=== PATIENT | male | born 1955 | race Caucasian/White ===

== ENCOUNTER 2024-12-29 15:55 | Inpatient (IN) | payer OTHER, SELFPAY ==
[2024-12-29] VITALS (11 sets, daily range): BP systolic 101–142; BP diastolic 42–70; BMI 27.6; BMI 28.7
--- NOTE | 2024-12-29 12:24 | ED.GENMED ---
History of Present Illness
<ELTON Barton - Last Filed: 01/02/25 00:24>
General
Chief Complaint: Cold/Flu/URI Symptoms
Source: patient
Exam Limitations: none
Time Seen by Provider: 12/29/24 11:51
Nursing documentation reviewed up to this point in time: agreed with
History of Present Illness
History of Present Illness:
Patient is a 69-year-old male with past medical history of sleep apnea hypertension presents to the ER for evaluation. 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 He also has been on doxycycline Augmentin without relief. He complains of persistent cough and wheezing. He is unable to sleep because of his cough at night.
he denies any fevers.
Phy Exam
<ELTON Barton - Last Filed: 01/02/25 00:24>
General Physical Exam
General Presentation: no apparent distress
General age: appears stated age
General Skin: warm and dry
General Habitus: normal
General Mental: alert
General Hydration: appears well hydrated
Cardiovascular Exam
Cardiovascular Exam: regular rate/rhythm, no murmur and normal peripheral pulses
Pulmonary Exam
Pulmonary Exam: generalized wheezing and other (+cough )
Neurological Exam
Neurological Exam: alert and oriented x3
Musculoskeletal Exam
Musculoskeletal Exam: full ROM
Skin Exam
Skin Exam: normal color and warm/dry
Psychiatric Exam
Psychiatric Exam: normal mood/affect
Course
<ELTON Barton - Last Filed: 01/02/25 00:24>
Orders/Labs/Results
Orders:
Orders
12/29/24 Breakfast
Regular
At Your Request: Limited Participation
Does patient need a safe tray?: No
12/29/24 11:38
CXR2 [CR Chest - 2 Views ] Urgent
Comment:
Reason For Exam: cough with SOB
12/29/24 12:40
Dexamethasone Sod Phosphate [Decadron] 10 mg IV NOW STA
12/29/24 12:42
Albuterol Sulfate [Ventolin Nebules] 7.5 mg INH R NOW STA
Ipratropium Nebs [Atrovent Nebules] 1 mg INH R NOW STA
12/29/24 12:51
Complete Blood Count/With Diff Urgent
Comprehensive Metabolic Panel Urgent
Magnesium Urgent
Comment: ADD ON
12/29/24 15:13
Electrocardiogram (*1) Stat
Reason for Study: Other
Other Reason for Exam: chest pain
EKG- Treatment ONCE
12/29/24 15:33
Admit/Transfer Patient As Directed
Co-Sign Provider:
Level of Care: Inpatient admission
Assign to:: Telemetry
Physician / Group: inocencia
Diagnosis: v tach
Reason for Telemetry: Arrhythmia
Date to Stop Telemetry: 01/01/25
Time to Stop Telemetry: 11:00
Reason for Hospitalization: v tach
Expected length of stay greater than two midnights?: Yes
ELOS- Estimated Length of Stay in days: 3
I certify the patient meets the requirements for IP care: Yes
12/29/24 15:34
PRN Pain Medication Management As Directed
May give lesser potent ordered pain med per pt: Yes
preference::
Protocol:: Medication orders for pain may be administered in a
manner that supports deferring to patient preference
when the pt is:
- Requesting an ordered lesser potent pain medication.
Least to most potent pain medications are defined
as: acetaminophen < NSAID < tramadol < opioids
(morphine, oxycodone, hydromorphone).
- Requesting a lesser dose of the same medication IF
ORDERED.
- Requesting a less intrusive route of administration
if both routes are prescribed by the provider (PO <
IV).
12/29/24 15:35
Code Status As Directed
Resuscitation Status: Full Code
12/29/24 16:29
COVID-19 Antigen Stat
Source: Nasal Swab
Influenza A+B Rapid Molecular Stat
DEBBIE Source: Nasal Swab
Specimen Description:
12/29/24 18:30
Acetaminophen [Tylenol] 650 mg PO Q4HPRN PRN
Bisacodyl [Dulcolax] 10 mg RECTAL [id number] PRN
Docusate W/Senna [Senokot-S] 1 tablet PO BIDPRN PRN
Enoxaparin Sodium [Lovenox] 40 mg SC QPM
Ipratropium/Albuterol Sulfate [Duoneb] 3 ml INH R QID
Polyethylene Glycol Powder [Miralax] 17 grams PO DAILYPRN PRN
12/29/24 18:30
CARDIOLOGY CONSULT Routine
Consulting Provider: Charles Montalvo
Was physician already notified: Yes
Respiratory Culture/Gram Stain Routine
DEBBIE Source: Sputum
Specimen Description:
Activity As Directed
Activity Level: As Tolerated
Vital Signs As Directed
Frequency: Per unit guidelines
DX Deep Vein Thrombosis Video Routine
12/29/24 20:00
Budesonide [Pulmicort] 0.5 mg INH R BID
Tamsulosin [Flomax] 0.4 mg PO BID
12/29/24 21:00
Dexamethasone Sod Phosphate [Decadron] 4 mg IV Q8H
12/30/24 08:00
Ramipril [Altace] 10 mg PO DAILY
Triamterene/Hctz [Dyazide] 1 capsule PO DAILY
01/01/25 11:00
DC Protocol for Telemetry ONCE
Abnormal Lab Results
12/29/24
12:51
RBC 4.40 L 10^6/uL
(4.70-6.10)
MCHC 32.4 L g/dL
(33.0-37.0)
MPV 11.4 H fL
(7.4-10.4)
Abs Immat Gran (auto) 0.1 H 10^3/uL
(0-0.05)
Absolute Neuts (auto) 6.9 H 10^3/uL
(1.4-6.5)
Absolute Monos (auto) 1.6 H 10^3/uL
(0.1-0.6)
Immature Gran % 0.6 H %
(0-0.5)
Lymphocytes % 18.4 L %
(20.5-51.1)
Monocytes % 14.8 H %
(1.7-9.3)
Sodium 134 L mmol/L
(135-145)
BUN 21 H mg/dl
(9-20)
Glucose 101 H mg/dl
(70-99)
Alkaline Phosphatase 37 L U/L
(38-126)
12/29/24 12:51
12/29/24 12:51
Vital Signs
Initial and Last Documented VS:
Initial Vital Signs
Temp Pulse Resp BP Pulse Ox
98.1 F 67 16 142/67 98
12/29/24 10:40 12/29/24 10:40 12/29/24 10:40 12/29/24 10:40 12/29/24 10:40
Last Documented Vital Signs
Temp Pulse Resp BP Pulse Ox
98.2 F 56 16 110/56 100
01/01/25 22:53 01/01/25 22:53 01/01/25 22:53 01/01/25 22:53 01/01/25 22:53
Generating Plant Superintendent consulted with Physician
Generating Plant Superintendent consulted with physician?: Yes
Name of Physician Consulted: Yasir
<Eri Cooley MD - Last Filed: 12/29/24 17:56>
Orders/Labs/Results
Orders:
Orders
12/29/24 Breakfast
Regular
At Your Request: Limited Participation
Does patient need a safe tray?: No
12/29/24 11:38
CXR2 [CR Chest - 2 Views ] Urgent
Comment:
Reason For Exam: cough with SOB
12/29/24 12:40
Dexamethasone Sod Phosphate [Decadron] 10 mg IV NOW STA
12/29/24 12:42
Albuterol Sulfate [Ventolin Nebules] 7.5 mg INH R NOW STA
Ipratropium Nebs [Atrovent Nebules] 1 mg INH R NOW STA
12/29/24 12:51
Complete Blood Count/With Diff Urgent
Comprehensive Metabolic Panel Urgent
Magnesium Urgent
Comment: ADD ON
12/29/24 15:13
Electrocardiogram (*1) Stat
Reason for Study: Other
Other Reason for Exam: chest pain
EKG- Treatment ONCE
12/29/24 15:33
Admit/Transfer Patient As Directed
Co-Sign Provider:
Level of Care: Inpatient admission
Assign to:: Telemetry
Physician / Group: inocencia
Diagnosis: v tach
Reason for Telemetry: Arrhythmia
Date to Stop Telemetry: 01/01/25
Time to Stop Telemetry: 11:00
Reason for Hospitalization: v tach
Expected length of stay greater than two midnights?: Yes
ELOS- Estimated Length of Stay in days: 3
I certify the patient meets the requirements for IP care: Yes
12/29/24 15:34
PRN Pain Medication Management As Directed
May give lesser potent ordered pain med per pt: Yes
preference::
Protocol:: Medication orders for pain may be administered in a
manner that supports deferring to patient preference
when the pt is:
- Requesting an ordered lesser potent pain medication.
Least to most potent pain medications are defined
as: acetaminophen < NSAID < tramadol < opioids
(morphine, oxycodone, hydromorphone).
- Requesting a lesser dose of the same medication IF
ORDERED.
- Requesting a less intrusive route of administration
if both routes are prescribed by the provider (PO <
IV).
12/29/24 15:35
Code Status As Directed
Resuscitation Status: Full Code
12/29/24 16:29
COVID-19 Antigen Stat
Source: Nasal Swab
Influenza A+B Rapid Molecular Stat
DEBBIE Source: Nasal Swab
Specimen Description:
12/29/24 18:30
Acetaminophen [Tylenol] 650 mg PO Q4HPRN PRN
Bisacodyl [Dulcolax] 10 mg RECTAL [id number] PRN
Docusate W/Senna [Senokot-S] 1 tablet PO BIDPRN PRN
Enoxaparin Sodium [Lovenox] 40 mg SC QPM
Ipratropium/Albuterol Sulfate [Duoneb] 3 ml INH R QID
Polyethylene Glycol Powder [Miralax] 17 grams PO DAILYPRN PRN
12/29/24 18:30
CARDIOLOGY CONSULT Routine
Consulting Provider: Charles Montalvo
Was physician already notified: Yes
Respiratory Culture/Gram Stain Routine
DEBBIE Source: Sputum
Specimen Description:
Activity As Directed
Activity Level: As Tolerated
Vital Signs As Directed
Frequency: Per unit guidelines
DX Deep Vein Thrombosis Video Routine
12/29/24 20:00
Budesonide [Pulmicort] 0.5 mg INH R BID
Tamsulosin [Flomax] 0.4 mg PO BID
12/29/24 21:00
Dexamethasone Sod Phosphate [Decadron] 4 mg IV Q8H
12/30/24 08:00
Ramipril [Altace] 10 mg PO DAILY
Triamterene/Hctz [Dyazide] 1 capsule PO DAILY
01/01/25 11:00
DC Protocol for Telemetry ONCE
Abnormal Lab Results
12/29/24
12:51
RBC 4.40 L 10^6/uL
(4.70-6.10)
MCHC 32.4 L g/dL
(33.0-37.0)
MPV 11.4 H fL
(7.4-10.4)
Abs Immat Gran (auto) 0.1 H 10^3/uL
(0-0.05)
Absolute Neuts (auto) 6.9 H 10^3/uL
(1.4-6.5)
Absolute Monos (auto) 1.6 H 10^3/uL
(0.1-0.6)
Immature Gran % 0.6 H %
(0-0.5)
Lymphocytes % 18.4 L %
(20.5-51.1)
Monocytes % 14.8 H %
(1.7-9.3)
Sodium 134 L mmol/L
(135-145)
BUN 21 H mg/dl
(9-20)
Glucose 101 H mg/dl
(70-99)
Alkaline Phosphatase 37 L U/L
(38-126)
12/29/24 12:51
12/29/24 12:51
Vital Signs
Initial and Last Documented VS:
Initial Vital Signs
Temp Pulse Resp BP Pulse Ox
98.1 F 67 16 142/67 98
12/29/24 10:40 12/29/24 10:40 12/29/24 10:40 12/29/24 10:40 12/29/24 10:40
Last Documented Vital Signs
Temp Pulse Resp BP Pulse Ox
98.2 F 56 16 110/56 100
01/01/25 22:53 01/01/25 22:53 01/01/25 22:53 01/01/25 22:53 01/01/25 22:53
<ELTON Barton - Last Filed: 01/02/25 00:24>
MDM/Problems Addressed
Differential Diagnosis Includes:
Not limited to viral syndrome, bronchitis, pneumonia
MDM/Problems Addressed:
As documented patient is a 69-year-old male who presented for cough for the past month. He has been on multiple antibiotics and inhalers. He is visiting from [place] and was seen by pulmonary. He denies any actual shortness of breath but has not
been able to sleep because of the cough. Complains of wheezing. He presents with obvious wheezing no fevers non hypoxic .
Patient was given an hour-long neb and does feel better however continued wheezing throughout. Chest x-ray negative.
1445: Called by nurse patient had a run of vtach 13 beats at a time however asymptomatic stable blood pressure.
Case reviewed with ED physician. Case reviewed with admitting hospitalist as well as cardiology. As discussed with cardiology will hold off on amiodarone. It is possible that albuterol precipitated this. Will check EKG patient will likely need
echo and then hospitalist made aware. Patient remains asymptomatic with stable blood pressure
Chronic conditions affecting care:
Hypertension sleep apnea
<ELTON Barton - Last Filed: 01/02/25 00:24>
*Radiology
Radiology exam reviewed: radiology read reviewed
*Pulse Oximetry
SaO2: 98
Oxygen Mode of Delivery: Room air
Patient hypoxic: no
*Critical Care Note
Total Time (30-74mins, 75-104mins- exclusive of procedures): Not Applicable
ED Attending Note
<ELTON Barton - Last Filed: 01/02/25 00:24>
-
Portions of this chart may have been created with voice recognition software.� Occasional wrong word or��sound alike� substitutions may have occurred due to the inherent limitations of voice recognition software.
<Eri Cooley MD - Last Filed: 12/29/24 17:56>
ED Attending Note
Patient seen and examined by attending physician: Yes
I performed the substantive portion of visit, reviewed & personally made and approve the management plan that is documented in note by myself or GEOVANNI.: Yes
ED Attending Note:
Patient is fully awake, alert. Heart sounds regular. Mild tachypnea and wheezing
Discharge Plan
Departure
Patient Disposition: Admit
Date of Disposition: 12/29/24
Time of Disposition: 15:15
Admit to: Telemetry
Admit to doctor: hospitalist
Presentation/result/management discussed w/ accepting MD/DO: Hospitalist
Patient with high blood pressure during this ER visit?: No
Condition: Fair
Covid-19: Not Applicable
Discharge Problem:
Bronchitis, Arrhythmia
Interventions
Interventions:
*General Assessment Last Done: 12/29/24 13:11
*Neglect/Abuse Screening Last Done: 12/29/24 10:42
*ED- Fall Risk Assessment Last Done: 12/29/24 13:11
*ED Influenza Vaccine History Last Done: 12/29/24 13:11
*Nursing Disposition Last Done: 12/29/24 18:15
ED- Pulmonary Assessment Last Done: 12/29/24 13:11
Discharge Date and Time
Discharge Date/Time: 12/29/24 18:23
[2024-12-29] MEDS: VENTOLIN NEBULES 7.5 MG INH (12:55)
[2024-12-29] MEDS: DECADRON 10 MG IV (12:55)
[2024-12-29] MEDS: ATROVENT NEBULES 1 MG INH (12:56)
[2024-12-29 13:09] LABS: Hematocrit 41.0 % (39.0-52.0); Hemoglobin 13.3 g/dL (13.0-18.0); Mean Corp Hgb Conc. 32.4 g/dL (33.0-37.0); Mean Corpuscular Volume 93.2 fL (80.0-94.0); Nucleated Red Blood Cells % 0 % (-); Platelet Count 207 10^3/uL (130-400); Red Cell Dist. Width 14.2 % (11.5-14.5)
[2024-12-29 13:24] LABS: ALT (SGPT) 31 U/L (0-50); AST (SGOT) 27 U/L (17-59); Albumin 4.0 g/dl (3.5-5.0); Alkaline Phosphatase 37 U/L (38-126); Blood Urea Nitrogen 21 mg/dl (9-20); Calcium 9.3 mg/dl (8.4-10.2); Carbon Dioxide 27 mmol/L (22-30); Chloride 104 mmol/L (98-107); Estimated Creatinine Clearance 98 ml/min; Glucose 101 mg/dl (70-99); Potassium 4.6 mmol/L (3.5-5.1); Sodium 134 mmol/L (135-145); Total Protein 7.0 g/dl (6.3-8.2); eGFR > 60.00
--- NOTE | 2024-12-29 15:15 | HPS.HSE ---
Addendum entered and electronically signed by Arlene Heard MD 12/29/24 16:49:
Pt seen and examined independently. I agree with GLASS SCIENCE ENGINEER Paula Modi.
GENERAL: well developed, well nourished, male in no apparent distress
HEENT: NC/AT--NO O2 requirements
HEART: irreg irreg with periods of regularity
LUNGS : coarse rhonchi bilaterally
ABDOM: soft, nontender, nondistended, + bowel sounds
EXT: no cyanosis, clubbing, or edema
NEUROLOGIC: grossly intact
Cough unclear cause--patient has had at least 3 rounds of antibiotics and oral prednisone without any improvement--chest x-ray shows no acute process--suspect either viral but less likely with normal white count and no other symptoms--versus perhaps
COPD or other lung issue exacerbation--admit--consult pulmonary--continue nebs, Pulmicort nebs, IV Decadron--would consider a CAT scan--low suspicion for PE but lung parenchyma could be evaluated--will check COVID and flu--patient denies any recent
long car trips, travel, vaccinations--will try Hycodan for cough
V. tach unclear cause likely from nebulizer treatment--potassium greater than 4 and magnesium greater than 2--while I was examining the patient, he had what appears to be periods of tachycardia (SVT with aberrancy versus ventricular in
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
treatments and his primary lung issue--consult cardiology--check troponin and echocardiogram--check proBNP
essential HTN--ramipril and triamterene continued (perhaps this is an CAN inhibitor induced cough?)
DVT prophylaxis--Lovenox
CODE status--full code
Original Note:
Family Physician
-
Family Physician: PHYSICIAN PRIVATE
Chief Complaint
-
cough
History of Present Illness
69-year-old male with past medical history of sleep apnea hypertension presented to us with cough which at times productive with clear sputum for four weeks. patient as on prednisone which effected his sleep with no relief. he was also on doxy and
Augmentin with no relief in his symptoms. he was prescribed trilogy Symbicort and inhaler. He complains of persistent cough and wheezing and sob. he denies any fevers,chills and chest pain. denied SARGENT, dizzy or syncope. denied abdominal pain,n,vd,.
denied dysuria or hematuria. patient stated palpitation some times in the past.
patient received a dose of sterids, nebs in ER. admitting for further management. patient had a run of v tach in the ER.
Medical History
Past Medical History
Past Medical History: Reports Other
Additional Past Medical History:
HTN
sleep apnea
Past Surgical History: Reports Other
Additional Past Surgical History:
humerus surgery
Social History
Tobacco: Non-smoker
Alcohol: Occasional
Drug: None
Family History
Family History: Not pertinent
Allergies / Home Medications
Allergies reflects when Allergies were last updated in [employer].
Home Medications with original date entered in [employer]
Allergy/Medication List:
Allergies
Allergy/AdvReac Type Severity Reaction Status Date / Time
No Known Allergies Allergy Unverified 12/29/24 10:42
Home Medications
amoxicillin 875 mg-potassium clavulanate 125 mg tablet 1 tab PO BID 12/29/24
ascorbic acid (vitamin C) 500 mg tablet (Vitamin C) 500 mg PO DAILY 12/29/24
cholecalciferol (vitamin D3) 25 mcg (1,000 unit) tablet (Vitamin D3) 25 mcg PO DAILY 12/29/24
magnesium oxide 400 mg PO DAILY 12/29/24
milk thistle 150 mg capsule 150 mg PO BID 12/29/24
omega 8-fly-crm-fish oil 1,000 mg (120 mg-180 mg) capsule (Fish Oil) 1 cap PO DAILY 12/29/24
ramipril 10 mg capsule 10 mg PO DAILY 12/29/24
tamsulosin 0.4 mg capsule (Flomax) 0.4 mg PO BID 12/29/24
triamterene 37.5 mg-hydrochlorothiazide 25 mg tablet 1 tab PO DAILY 12/29/24
zinc sulfate 50 mg zinc (220 mg) tablet 50 mg PO DAILY 12/29/24
Review of Systems
-
Constitutional: Reports No Symptoms
EENT: Reports No Symptoms
Respiratory: Reports Cough and Trouble Breathing
Cardiac: Reports No Symptoms
Abdomen/GI: Reports No Symptoms
: Reports No Symptoms
Musculoskeletal: Reports No Symptoms
Skin: Reports No Symptoms
Neurological: Reports No Symptoms
Endocrine: Reports No Symptoms
Hematologic/Lymphatic: Reports No Symptoms
Psych: Reports No Symptoms
Physical Exam
Vital Signs
Vital Signs
Temp Pulse Resp BP Pulse Ox
97.6 F 55 17 101/50 99
12/29/24 13:11 12/29/24 13:11 12/29/24 13:11 12/29/24 13:11 12/29/24 13:11
Physical Exam
General: Well Developed, Well Nourished and No Apparent Distress
HEENT: NormoCephalic, Moist mucous membranes and Atraumatic
Respiratory: Wheezes and Rhonchi
Cardiac: S1/S2 and Regular Rhythm; No Murmur or Rub
GI: Soft, Non Tender, Non Distended and Normal Bowel Sounds; No Organomegaly
Rectal: Deferred by Provider
Musculoskeletal: No Clubbing, No Cyanosis and No Edema
Skin: No Rash
Neuro: AO x 3 and Nonfocal/grossly intact
Psych: Calm
Laboratory Results
-
12/29/24 12:51
12/29/24 12:51
Laboratory Results
Total Bilirubin 0.8 mg/dl (0.2-1.3) 12/29/24 12:51
AST 27 U/L (17-59) 12/29/24 12:51
ALT 31 U/L (0-50) 12/29/24 12:51
Alkaline Phosphatase 37 U/L (38-126) L 12/29/24 12:51
Data Reviewed
-
Lab Data: Labs Reviewed by me
Impression/Plan
-
# Cough unclear cause
- Chest x-ray with no acute cardiopulmonary process
-nebs, steroids in the ER
-albuterol, Pulmicort continued
-obtain COVID and Flu
--Decadron 4 q8h
-hycodan for cough
-pulmonary consulted
# V. tach unclear cause likely from nebulizer treatment
#hxt of irregular heartbeat
- Check echocardiogram
- Cardiology consulted
-BNP and trop added
#essential HTN
-ramipril and triamterene continued
#DVT prophylaxis
-Lovenox
#CODE status
-full code
[2024-12-29 15:32] LABS: Magnesium 2.3 mg/dl (1.6-2.3)
--- NOTE | 2024-12-29 15:36 | EDRN ---
the pt was having runs of Vtach with dizziness and nausea, this RN notified Dr. Cooley and Mady Toure RAISE DRILL OPERATOR, pts Vtach breaks on it's own, pt will be admitted
[2024-12-29 17:03] LABS: COVID-19 Antigen Negative (Negative)
[2024-12-29 17:10] LABS: Troponin I < 0.012 ng/ml
--- NOTE | 2024-12-29 18:05 | EDRN ---
this RN called the receiving unit and notified them that paper report was going to be tubed up
[2024-12-29] MEDS: DUONEB INH (19:00)
[2024-12-29] MEDS: FLOMAX 0.4 MG PO (19:42)
[2024-12-29] MEDS: LOVENOX 40 MG SC (19:42)
[2024-12-29] MEDS: DUONEB 3 ML INH (19:45)
[2024-12-29] MEDS: PULMICORT 0.5 MG INH (19:45)
[2024-12-29] MEDS: DECADRON 4 MG IV (21:44)
[2024-12-29 21:45] LABS: Glucose - Point of Care 301 mg/dl (70-99)
[2024-12-30 03:17] VITALS: BP 150/59
[2024-12-30 04:15] LABS: Hematocrit 42.7 % (39.0-52.0); Hemoglobin 13.9 g/dL (13.0-18.0); Mean Corp Hgb Conc. 32.6 g/dL (33.0-37.0); Mean Corpuscular Volume 93.2 fL (80.0-94.0); Platelet Count 231 10^3/uL (130-400); Red Cell Dist. Width 14.2 % (11.5-14.5)
[2024-12-30] MEDS: DECADRON 4 MG IV ×3 (05:00→21:04)
[2024-12-30 07:00] VITALS: BP 109/45
[2024-12-30] MEDS: DUONEB 3 ML INH ×3 (07:32→15:30)
[2024-12-30] MEDS: PULMICORT 0.5 MG INH ×2 (07:32→19:37)
[2024-12-30 08:46] LABS: Blood Urea Nitrogen 21 mg/dl (9-20); Calcium 9.3 mg/dl (8.4-10.2); Carbon Dioxide 23 mmol/L (22-30); Chloride 106 mmol/L (98-107); Estimated Creatinine Clearance 98 ml/min; Glucose 177 mg/dl (70-99); HDL Cholesterol 49 mg/dl; LDL Cholesterol, Calculated 106 mg/dl; Magnesium 2.3 mg/dl (1.6-2.3); Potassium 4.4 mmol/L (3.5-5.1); Sodium 135 mmol/L (135-145); Very Low Density Lipoprotein 11 mg/dl (0-30); eGFR > 60.00
[2024-12-30] MEDS: ALTACE 10 MG PO (09:02)
[2024-12-30] MEDS: MAGNESIUM OXIDE 400 MG PO (09:02)
[2024-12-30] MEDS: DYAZIDE 1 CAPSULE PO (09:02)
[2024-12-30] MEDS: FLOMAX 0.4 MG PO ×2 (09:02→19:09)
[2024-12-30 11:00] VITALS: BP 123/58
--- NOTE | 2024-12-30 11:58 | CON.CAR ---
Consultation
Consultation Request
Date/Time Consultation Requested: 12/29/2024 1600
Date/Time Consultation Performed: 12/30/2024 1000
Requesting Provider: Félix
Performing Provider: Katia
Reason for Consultation: PVCs
Medical History
-
Chief Complaint: SOB, cough, wheeze
History of Present Illness:
Patient is a pleasant 69-year-old male with a past medical history significant for hypertension, sleep apnea who presents to [facility] due to shortness of breath, cough, wheezing. Cardiology consulted due to sinus bradycardia and PVCs.
In discussion with patient and his spouse, patient is been experiencing increasing shortness of breath over the past several weeks. Patient and spouse have been on a cruise 6-8 weeks ago and following this, patient had an upper respiratory
infection but was unclear of what type of infection this was. Since then, he has experienced continued shortness of breath, cough, wheezing with mild improvement with neb treatments. While in emergency department, patient had evidence of PVCs and
NSVT on library monitor. In discussion with patient and spouse, patient did not experience these PVCs palpitations or NSVT. However, in further discussion with spouse, patient has been experiencing more shortness of breath and palpitations which
he does not readily admit. Patient is active walking and doing physical activity but does not exercise due to abdominal hernia. Patient follows with cardiology and electrophysiology in [place] and was reported by cardiology to have upcoming
stress test this April but no other testing recently. Additionally, he had seen electrophysiology due to what sounds PVCs however patient was told that he 'was on the cusp' for needing treatment however unclear what this could entail. Patient
is a non-smoker, rare alcohol, no illicits. No significant pertinent family history. In discussion with patient today, he does report some mild improvement with shortness of breath following neb treatments. Again, in evaluation, he denies any
palpitations associated with PVCs or ectopy. Additionally, patient has not experienced near-syncope syncope or focal weakness.
Past Medical History
Past Medical History: Other (See HPI)
Past Surgical History: Other (Humeral fracture)
Social History
Tobacco: Non-Smoker
Alcohol: Occasional
Drug: None
Personal:
Living: With Family
Employment: Employed
Family History
Family History: Reviewed & Not Pertinent
Allergies / Home Medications
Allergy/AdvReac Type Severity Reaction Status Date / Time
No Known Allergies Allergy Unverified 12/29/24 10:42
�Medication �Instructions �Recorded �Confirmed �Type
amoxicillin 875 mg-potassium 1 tab PO BID 12/29/24 12/29/24 History
clavulanate 125 mg tablet
ascorbic acid (vitamin C) 500 mg 500 mg PO DAILY 12/29/24 12/29/24 History
tablet (Vitamin C)
cholecalciferol (vitamin D3) 25 25 mcg PO DAILY 12/29/24 12/29/24 History
mcg (1,000 unit) tablet (Vitamin
D3)
magnesium oxide 400 mg PO DAILY 12/29/24 12/29/24 History
milk thistle 150 mg capsule 150 mg PO BID 12/29/24 12/29/24 History
omega 5-akr-epo-fish oil 1,000 mg 1 cap PO DAILY 12/29/24 12/29/24 History
(120 mg-180 mg) capsule (Fish Oil)
ramipril 10 mg capsule 10 mg PO DAILY 12/29/24 12/29/24 History
tamsulosin 0.4 mg capsule (Flomax) 0.4 mg PO BID 12/29/24 12/29/24 History
triamterene 37.5 1 tab PO DAILY 12/29/24 12/29/24 History
mg-hydrochlorothiazide 25 mg tablet
zinc sulfate 50 mg zinc (220 mg) 50 mg PO DAILY 12/29/24 12/29/24 History
tablet
Review of Systems
-
History Source: Patient and Family
All other systems: Negative unless noted
Constitutional: No Symptoms
EENT: No Symptoms
Respiratory: Cough, Trouble Breathing and Other (Wheezing)
Cardiac: No Symptoms
Abdomen/GI: No Symptoms
: No Symptoms
Musculoskeletal: No Symptoms
Skin: No Symptoms
Neurological: No Symptoms
Endocrine: No Symptoms
Hematologic/Lymphatic: No Symptoms
Physical Exam
Vital Signs
Temp Pulse Resp BP Pulse Ox
97.7 F 64 16 109/45 95
12/30/24 07:00 12/30/24 11:50 12/30/24 11:50 12/30/24 07:00 12/30/24 11:50
Lab Results
12/30/24 03:27
12/30/24 06:34
Troponin I < 0.012 ng/ml 12/29/24 16:29
Yfi-E-Zoxlmfqhqnw Pept 172 pg/ml 12/29/24 16:29
Physical exam:
GENERAL: no acute distress
EYE: sclera anicteric
NECK: Supple, no JVD, no carotid bruit appreciated
ENT: normal nose, moist mucosal membranes
CARDIAC: Regular rate and rhythm ectopy noted, +S1/S2, no murmur, rubs, or gallops
CHEST/PULMONARY: Normal effort, bilateral diffuse wheezing
ABDOMEN: Soft, without focal tenderness or distention
NEUROLOGICAL: Alert and oriented x3
SKIN: Warm and dry, no rash
PSYCH: Normal and appropriate interaction.
Telemetry shows sinus rhythm with PVCs and brief NSVT
Impression / Plan
-
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
Impression:
PVCs, nonsustained ventricular tachycardia
� Asymptomatic
� Monomorphic; left bundle morphology, positive lead I inferiorly directed axis with transition at V3 which may represent RVOT (additionally, transition is earlier than sinus and could therefore represent LVOT)
� Reports prior testing with outpatient cardiology but no further intervention
� Intolerant to beta-jazzmine due to fatigue
� Resting sinus bradycardia
Upper respiratory infection
Diffuse wheezing, shortness of breath
Hypertension
Sleep apnea
Recommendations:
� Patient presenting with upper respiratory infection type symptoms with diffuse wheezing. Patient undergoing treatment evaluation by primary service and pulmonology for his respiratory issue. Patient also noted to have significant ventricular
ectopy. Appears to be monomorphic PVCs with nonsustained VT from similar exit site. Patient states no prior echocardiography however does note that he has a stress test scheduled for this upcoming April. With this in mind, we will have patient
undergo 2D echocardiogram assess cardiac size, shape, function, and valvular anatomy. If abnormal, would would therefore proceed with ischemic evaluation and testing. PVCs may represent outflow tract and therefore, may be amenable for calcium
channel jazzmine such as diltiazem as patient intolerant to beta-jazzmine versus outpatient discussion on ablation however would recommend structural/ischemic evaluation prior to those discussions
� Continue to monitor on telemetry
� Treat underlying causes, correct electrolytes and monitor renal function
� Further recommendations to follow
Discussed with patient, spouse, hospitalist
Data Reviewed
-
EKG: Tracing Personally Visualized and interpreted
Radiology: Report Reviewed by me
Labs: Labs Reviewed by me
[2024-12-30 12:22] LABS: Glucose - Point of Care 223 mg/dl (70-99)
--- NOTE | 2024-12-30 14:35 | W.PN.HOSP.TC ---
Today's Communication/Plan
-
apprec cards
await pulm
ECHO with RV issues--stress vs cath
Assessment / Plan
Assessment / Plan
pt is a 69 year old male
Cough unclear cause--patient has had at least 3 rounds of antibiotics and oral prednisone without any improvement--chest x-ray shows no acute process--suspect either viral but less likely with normal white count and no other symptoms--versus perhaps
COPD or other lung issue exacerbation--await pulmonary--continue nebs, Pulmicort nebs, IV Decadron--would consider a CAT scan--low suspicion for PE but lung parenchyma could be evaluated--COVID and flu negative--patient denies any recent long car
trips, travel, vaccinations--will try Hycodan for cough
V. tach --monomorphic--unclear cause--potassium greater than 4 and magnesium greater than 2--while examining the patient, he had what appeared to be periods of tachycardia (SVT with aberrancy versus ventricular in nature--followed by pauses with
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
issue--apprec cardiology--echocardiogram with EF 60-65% with mild RV dilation and RV systolic function--proBNP 172, no signs of volume overload--troponin < 0.012--will likely get stress test vs cath tomorrow
essential HTN--ramipril and triamterene continued (perhaps this is an CAN inhibitor induced cough?)
DVT prophylaxis--Lovenox
CODE status--full code
Anticipated Discharge: 24 - 48 hours
Subjective/Interval History
-
Date of Service: December 30, 2024
pt feeling better
Objective Data
-
Labs:
Laboratory Results
12/30/24 12/30/24
03:27 06:34
WBC 11.1 H
Hgb 13.9
Hct 42.7
Plt Count 231
Sodium Cancelled 135
Potassium Cancelled 4.4
Chloride Cancelled 106
Carbon Dioxide Cancelled 23
BUN Cancelled 21 H
Creatinine Cancelled 0.8
Glucose Cancelled 177 H
Calcium Cancelled 9.3
Vital Signs:
max temp for 24 hours
12/29/24
23:25
Temp 98.3 F
Vital Signs
Temp Pulse Resp BP Pulse Ox
98.2 F 64 16 123/58 95
12/30/24 11:00 12/30/24 11:50 12/30/24 11:50 12/30/24 11:00 12/30/24 11:50
I&O
12/29/24 12/30/24 12/31/24
06:59 06:59 06:59
Intake Total 480 / 480
Balance 480 / 480
Review of Systems
-
All other systems: Reviewed and negative
Respiratory: Reports Cough (improving)
Physical Exam
-
General: Well Developed, Well Nourished and No Apparent Distress
HEENT: Normocephalic and Atraumatic
Respiratory: Rhonchi (raspy breath sounds left base)
Cardiac: Irregular Rhythm
GI: Soft, Nontender, Nondistended and Normal Bowel Sounds
Musculoskeletal: No Clubbing, No Cyanosis and No Edema
Skin: Warm
Neuro: Awake
Psych: Calm
[2024-12-30 15:00] VITALS: BP 124/58
--- NOTE | 2024-12-30 15:28 | CON.PUL ---
Consultation
Consultation Request
Date/Time Consultation Requested: 12/30/2024
Date/Time Consultation Performed: 12/30/2024
Requesting Provider: Dr. Heard
Performing Provider: Dr. Adam Green
Reason for Consultation: Cough
Medical History
-
History of Present Illness:
69-year-old male with past medical history significant for obstructive sleep apnea, hypertension who presented to the emergency room complaining of cough intermittently productive of clear sputum for the last 4 weeks. Patient has been treated with
antibiotics and prednisone without relief.
He was placed on inhalers in the outpatient including Symbicort and Trelegy.
Complains of persistent cough and wheezing and associated shortness of breath.
Denies fevers, chills, hemoptysis, weight loss. Sick contacts.
Patient was discovered to have a V. tach run in the emergency room.
He was admitted for further evaluation.
-
Patient reports that he has had similar episodes after respiratory infections and he was prescribed inhalers in the past with success
He follows up with a occupational therapy instructor in [place] for obstructive sleep apnea.
Over the years he has been given some inhalers that he takes only when he has symptoms.
Denies GERD or swallowing problems
Denies eczema
-
Patient is here only for the weekend-usually comes to [place] where he has a weekend house.
Past Medical History
Past Medical History: Other (See assessment and plan section)
Social History
Tobacco: Non-smoker
Alcohol: Occasional
Drug: None
Family History
Family History: Reviewed & Not Pertinent
Allergies / Home Medications
Allergies
Allergy/AdvReac Type Severity Reaction Status Date / Time
No Known Allergies Allergy Unverified 12/29/24 10:42
Home Medications
�Medication �Instructions �Recorded �Confirmed �Last Taken �Type
amoxicillin 875 mg-potassium 1 tab PO BID 12/29/24 12/29/24 12/29/24 History
clavulanate 125 mg tablet
ascorbic acid (vitamin C) 500 mg 500 mg PO DAILY 12/29/24 12/29/24 12/29/24 History
tablet (Vitamin C)
cholecalciferol (vitamin D3) 25 25 mcg PO DAILY 12/29/24 12/29/24 12/29/24 History
mcg (1,000 unit) tablet (Vitamin
D3)
magnesium oxide 400 mg PO DAILY 12/29/24 12/29/24 12/29/24 History
milk thistle 150 mg capsule 150 mg PO BID 12/29/24 12/29/24 12/29/24 History
omega 9-bmg-nik-fish oil 1,000 mg 1 cap PO DAILY 12/29/24 12/29/24 12/29/24 History
(120 mg-180 mg) capsule (Fish Oil)
ramipril 10 mg capsule 10 mg PO DAILY 12/29/24 12/29/24 12/29/24 History
tamsulosin 0.4 mg capsule (Flomax) 0.4 mg PO BID 12/29/24 12/29/24 12/29/24 History
triamterene 37.5 1 tab PO DAILY 12/29/24 12/29/24 12/29/24 History
mg-hydrochlorothiazide 25 mg tablet
zinc sulfate 50 mg zinc (220 mg) 50 mg PO DAILY 12/29/24 12/29/24 12/29/24 History
tablet
Review of Systems
-
History Source: Patient
All other systems: Negative unless noted
Vitals / Labs / Diagnostic Testing
Vital Signs
Temp Pulse Resp BP Pulse Ox
98.2 F 64 16 123/58 95
12/30/24 11:00 12/30/24 11:50 12/30/24 11:50 12/30/24 11:00 12/30/24 11:50
Lab Data
12/30/24 03:27
12/30/24 06:34
Microbiology
12/29/24 16:29 Nasal Swab Influenza Types A & B (NUBIA) - Final
Negative for Influenza A & B, NAAT
Negative results must be combined with clinical observations
and patient history.
Nucleic Acid Amplification test (NAAT)performed on the
[employer] platform.
Diagnostic Testing:
Physical Exam
-
HEENT: Normocephalic
Cardiovascular: S1/S2
Respiratory: Wheeze (Forced expiratory wheezing-mild) and Non-Labored Respirations
GI: Soft and Non Distended
Neurology: Awake, AO x 3 and No Motor Deficits
Skin: Warm and Good Color
General: Comfortable
Assessment
-
69-year-old man admitted to the hospital complaining of chronic cough for the last 4 weeks. Patient has been treated with prednisone and antibiotics without success.
Cough interfering with lifestyle and not associated with shortness of breath and wheezing. Came to the emergency room for evaluation. He was discovered to have a nonsustained run of VT. Admitted for further evaluation. Pulmonary consulted
12/30/2024 for coughing
Shortness of breath/cough/wheezing: Possible asthmatic bronchitis
No peripheral eosinophilia
Normal renal function and electrolytes
Negative proBNP and cardiac biomarkers.
COVID and influenza negative
Chest x-ray: No acute abnormality
Nonsustained VT in the emergency room
Echo 12/30/2024: Reviewed showed normal LVEF. No regional wall motion abnormalities. Mild RV dilatation and mild RV systolic dysfunction.
Conditions present prior admission:
Hypertension
Obstructive sleep apnea-on CPAP therapy follows up with a occupational therapy instructor in [place].
Previous history of asthmatic bronchitis in the past
Assessment and plan:
Cough/shortness of breath and wheezing: Possibly asthmatic bronchitis. Most likely postviral-he reports developing an upper respiratory infection at the beginning of the symptoms.
No previous pulmonary disease.
Chest x-ray without acute abnormalities
So far workup has been negative
-
Agree with current management with IV corticosteroids without change
Continue Pulmicort nebulizer-May need to be discharged on nebulizer therapy while the cough improves
On albuterol/ipratropium for now 4 times a day.
Due to palpitations and ectopy will discontinue albuterol portion of nebulizers. States that he feels uncomfortable with palpitations.
-
Will add azithromycin for anti-inflammatory properties 500 mg for 5 days and then transition to 250 mg every other day-
Depending on clinical progression further imaging such as a CAT scan may be necessary.
-
Patient had echocardiogram here for VT and showed mild RV dysfunction.
He was seen by Dr. Hernandez from EP in consultation-
Continue telemetry.
Will avoid albuterol for now.
-
Unclear etiology of RV dysfunction.
Unclear etiology
Not tachycardic or hypoxemic
Will obtain D-dimer
If D-dimer elevated can consider obtaining CT angiogram. Suspicion clinically not very high for thromboembolic event.
-
Continue antitussive as you are doing
-
Ramipril induced cough diagnosis of exclusion-less likely.
-
Continue CPAP therapy if able to tolerate with coughing
-
DVT prophylaxis with enoxaparin
-
Will follow
[2024-12-30] MEDS: LOVENOX 40 MG SC (17:33)
[2024-12-30 19:32] VITALS: BP 115/59
[2024-12-30] MEDS: ATROVENT NEBULES 0.5 MG INH (19:38)
[2024-12-30 21:21] LABS: D-Dimer 0.69 ug/mlFEU (0.00-0.50)
--- NOTE | 2024-12-30 21:41 | W.PN.UPDATE ---
Update Note
Progress Note Update
abnormal D.Dimer result of 0.69. CT/PE ordered and result with no evidence of pulmonary embolism and no significant acute abnormality identified in the chest.
[2024-12-30 22:52] VITALS: BP 121/62
[2024-12-31 04:00] VITALS: BP 111/58
[2024-12-31] MEDS: DECADRON 4 MG IV ×2 (04:17→12:06)
--- NOTE | 2024-12-31 06:15 | PTCARENOTE ---
pt HR in the 60 SR with pvc trigeminy, and multiple burst/runs of vtach. VSS. pt states he feels fine. D-dimer results reported to RONEN Lim. Pt sent for CT PE. updated [employer].
[2024-12-31 07:00] VITALS: BP 117/64
[2024-12-31 07:00] LABS: Hematocrit 38.8 % (39.0-52.0); Hemoglobin 12.7 g/dL (13.0-18.0); Mean Corp Hgb Conc. 32.7 g/dL (33.0-37.0); Mean Corpuscular Volume 92.4 fL (80.0-94.0); Platelet Count 206 10^3/uL (130-400); Red Cell Dist. Width 14.6 % (11.5-14.5)
[2024-12-31 07:11] LABS: Blood Urea Nitrogen 22 mg/dl (9-20); Calcium 9.1 mg/dl (8.4-10.2); Carbon Dioxide 26 mmol/L (22-30); Chloride 106 mmol/L (98-107); Estimated Creatinine Clearance 113 ml/min; Glucose 158 mg/dl (70-99); Magnesium 2.1 mg/dl (1.6-2.3); Potassium 4.3 mmol/L (3.5-5.1); Sodium 137 mmol/L (135-145); eGFR > 60.00
[2024-12-31] MEDS: FLOMAX PO ×4 (07:32→20:08)
[2024-12-31] MEDS: MAGNESIUM OXIDE 400 MG PO (07:32)
[2024-12-31] MEDS: DYAZIDE 1 CAPSULE PO (07:32)
[2024-12-31] MEDS: ALTACE 10 MG PO (07:32)
[2024-12-31] MEDS: PULMICORT 0.5 MG INH ×2 (08:20→19:15)
[2024-12-31] MEDS: ATROVENT NEBULES 0.5 MG INH ×3 (08:20→19:15)
--- NOTE | 2024-12-31 09:51 | W.PN.PUL.V3 ---
Today's Communication / Plan
-
Change Decadron to Prednisone with fairly rapid taper.
Nebulizers as needed
Stable for discharge from the pulmonary/ sleep disorder's perspective-nuclear stress test 01/01/25
Assessment
-
69-year-old man admitted to the hospital complaining of chronic cough for the last 4 weeks. Patient has been treated with prednisone and antibiotics without success.
Cough interfering with lifestyle and not associated with shortness of breath and wheezing. Came to the emergency room for evaluation. He was discovered to have a nonsustained run of VT. Admitted for further evaluation. Pulmonary consulted
12/30/2024 for coughing
Shortness of breath/cough/wheezing: Possible asthmatic bronchitis
No peripheral eosinophilia
Normal renal function and electrolytes
Negative proBNP and cardiac biomarkers.
COVID and influenza negative
Chest x-ray: No acute abnormality
Nonsustained VT in the emergency room
Echo 12/30/2024: Reviewed showed normal LVEF. No regional wall motion abnormalities. Mild RV dilatation and mild RV systolic dysfunction.
Conditions present prior admission:
Hypertension
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
Previous history of asthmatic bronchitis in the past
Assessment and plan:
Respiratory status improved.
Wean supplemental oxygen-currently on room air. No longer wheezing on exam.
Change Decadron to Prednisone taper.
Atrovent nebulizers-can changed to as needed-avoiding albuterol with rapid atrial fibrillation.
Budesonide nebulizers. Continue
Mucolytic's
Aspiration precautions
Antitussives as needed.
Ramipril-induced cough-A diagnosis of exclusion-cough, improving while. Patient still on medication
CPAP at night-using own-follows with a Dr. Walter carrizales [place]
Cardiology following-correspondence reviewed.
Stress test 01/01/25.
D-dimer mildly positive.
CT angiogram negative for pulmonary embolism
DVT prophylaxis -on Lovenox.
Nutrition
Early mobilization.
Outpatient pulmonary/sleep disorders. Follow-follows with Dr. Watson in [place]-told patient to obtain CT chest report provided to him
Subjective Data
-
Date of Service:
Date of Service: December 31, 2024
Chief Complaint: Pulmonary Follow Up and Dyspnea Follow Up
Subjective:
Feels better, less wheezing, no complaints shortness of breath, chest pain, productive cough, tolerating his own CPAP
Review of Systems
General: Other ( per HPI)
Objective Data
Data Reviewed
Vital Signs / I&O:
Vital Signs
Temp Pulse Resp BP Pulse Ox
98.4 F 54 14 117/64 97
12/31/24 07:00 12/31/24 08:23 12/31/24 08:23 12/31/24 07:32 12/31/24 08:23
Intake and Output
12/30/24 12/31/24 01/01/25
06:59 06:59 06:59
Intake Total 480 / 480 400 / 400
Balance 480 / 480 400 / 400
SaO2: 97
Physical Exam
General: Respiratory Distress (n) and Comfortable
HEENT: Normocephalic, Anicteric and Moist Mucous Membranes
Cardiovascular: Irregular Rhythm
Respiratory: Wheeze (n), Crackles (n), Rhonchi (n), Non-Labored Respirations, Accessory Resp Muscle Use (n) and Stridor (n)
GI: Soft, Non Distended and Non Tender
Neurology: Awake and No Motor Deficits
Skin: Warm, Good Color, Cyanosis (n), Jaundice (n) and Rash (n)
Labs/Micro/Reports
Lab Data
12/31/24 06:09
12/31/24 06:09
Microbiology
12/29/24 16:29 Nasal Swab Influenza Types A & B (NUBIA) - Final
Negative for Influenza A & B, NAAT
Negative results must be combined with clinical observations
and patient history.
Nucleic Acid Amplification test (NAAT)performed on the
[employer] platform.
--- NOTE | 2024-12-31 11:03 | W.PN.CARDCBS ---
Addendum entered and electronically signed by Harsha Sow DO 12/31/24 13:59:
I saw and examined the patient.
The Cargo Inspector's note was reviewed and I agree with the note.
Comment:
General: No acute distress, AAOX3
Neck: Negative JVD
Heart: Regular, Negative S3 positive S1/S2, Negative S4, No murmur
Lungs: CTA b/l, negative wheezes/rales/rhonchi
Abd: Positive BS, NT/ND, neg rebound/rigidity/guarding
Ext: Negative cyanosis/clubbing/edema
Neuro: nonfocal
Plan:
Continue treatment of URI/respiratory insufficiency, pulmonary toilet
Reviewed echo with patient and significant other. EF is preserved., Given recurrent ectopy and runs of NSVT, discussed ischemic evaluation. He had already been recommended a stress test which is not scheduled until April 2025 in [place]. We
discussed checking exercise MIBI tomorrow. He was agreeable to this.
Consider transition to diltiazem following ischemic stress testing to help with PVC burden.
He may ultimately benefit from EP evaluation regarding PVC/NSVT, pending his response to Cardizem
However, some of his ectopy may be related to his upper respiratory symptoms.
Cont CPAP
Took time to answer all questions that both he and his partner had.
They were appreciative
Original Note:
Today's Communication / Plan
-
Ongoing treatment with IV steroids and nebulizers per primary team/pulmonary
Exercise nuclear stress test on 01/01/2025
N.p.o. after midnight
To consider initiation of diltiazem after stress test pending result
Impression / Plan
-
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 Montalvo
Impression:
Presented 12/30/2024 for persistent cough, shortness of breath with wheezing
Shortness of breath
Diffuse wheezing
PVCs, nonsustained VT in emergency department
Elevated D-dimer, CT of chest negative for PE
History of PVCs
Obstructive sleep apnea
Hypertension
Echo 12/30/2024: EF 60 to 65%. Normal regional wall motion. Mild RV dilation with mild RV systolic dysfunction. Mild aortic valve dilation SVO 3.8 cm. No significant valvular disease.
Plan:
Presented 12/30/2024 for persistent cough, shortness of breath with wheezing concerning for upper respiratory infection type symptoms. Patient also noted to have significant ventricular ectopy.
- Treatment evaluation by primary service and pulmonology with IV steroids and nebulizers
- Elevated D-dimer, result of 0.69. CT/PE 12/30 with no evidence of pulmonary embolism and no significant acute abnormality identified in the chest.
PVCs, nonsustained ventricular tachycardia
� Asymptomatic; Monomorphic; left bundle morphology, positive lead I inferiorly directed axis with transition at V3 which may represent RVOT (additionally, transition is earlier than sinus and could therefore represent LVOT). Reports prior testing
with outpatient cardiology. Reports he did not tolerate beta-jazzmine.
� PVCs may represent outflow tract and therefore, may be amenable for calcium channel jazzmine such as diltiazem as patient intolerant to beta-jazzmine (caused fatigue) versus outpatient discussion on ablation
- Echocardiogram this admission shows preserved ejection fraction with normal regional wall motion. Mild RV dilation with mild RV systolic dysfunction and no significant valve disease
- Patient agreeable to undergo ischemic evaluation this admission to rule out ischemia as a cause of his ectopy and NSVT. Will schedule exercise nuclear stress test
� Continue to monitor on telemetry
� Electrolytes stable with potassium 4.3, magnesium 2.1. Keep K greater than 4, mag greater than 2
� Further recommendations to follow; did discussed initiation of diltiazem. Will await results of stress test prior to initiating.
Discussed with patient, spouse, hospitalist
History of Present Illness 12/31/2024:
Patient is a pleasant 69-year-old male with a past medical history significant for hypertension, sleep apnea who presents to [facility] due to shortness of breath, cough, wheezing. Cardiology consulted due to sinus bradycardia and PVCs.
In discussion with patient and his spouse, patient is been experiencing increasing shortness of breath over the past several weeks. Patient and spouse have been on a cruise 6-8 weeks ago and following this, patient had an upper respiratory
infection but was unclear of what type of infection this was. Since then, he has experienced continued shortness of breath, cough, wheezing with mild improvement with neb treatments. While in emergency department, patient had evidence of PVCs and
NSVT on control officer. In discussion with patient and spouse, patient did not experience these PVCs palpitations or NSVT. However, in further discussion with spouse, patient has been experiencing more shortness of breath and palpitations which
he does not readily admit. Patient is active walking and doing physical activity but does not exercise due to abdominal hernia. Patient follows with cardiology and electrophysiology in [place] and was reported by cardiology to have upcoming
stress test this April but no other testing recently. Additionally, he had seen electrophysiology due to what sounds PVCs however patient was told that he 'was on the cusp' for needing treatment however unclear what this could entail. Patient
is a non-smoker, rare alcohol, no illicits. No significant pertinent family history. In discussion with patient today, he does report some mild improvement with shortness of breath following neb treatments. Again, in evaluation, he denies any
palpitations associated with PVCs or ectopy. Additionally, patient has not experienced near-syncope syncope or focal weakness.
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
Subjective
Date of Service: December 31, 2024
Objective
Labs:
12/31/24 06:09
12/31/24 06:09
Labs
Hgb 12.7 g/dL (13.0-18.0) L 12/31/24 06:09
Hct 38.8 % (39.0-52.0) L 12/31/24 06:09
Plt Count 206 10^3/uL (130-400) 12/31/24 06:09
Sodium 137 mmol/L (135-145) 12/31/24 06:09
Potassium 4.3 mmol/L (3.5-5.1) 12/31/24 06:09
BUN 22 mg/dl (9-20) H 12/31/24 06:09
Creatinine 0.7 mg/dL (0.7-1.3) 12/31/24 06:09
Glucose 158 mg/dl (70-99) H 12/31/24 06:09
Troponins
12/29/24
16:29
Troponin I < 0.012
Vital Signs and I&O:
Vital Signs
Temp Pulse Resp BP Pulse Ox
98.4 F 54 14 117/64 97
12/31/24 07:00 12/31/24 08:23 12/31/24 08:23 12/31/24 07:32 12/31/24 09:51
Vital Signs
Temp Pulse Resp BP Pulse Ox
98.4 F 54 14 117/64 97
12/31/24 07:00 12/31/24 08:23 12/31/24 08:23 12/31/24 07:32 12/31/24 09:51
Intake & Output
12/29/24 12/30/24 12/31/24 01/01/25
06:59 06:59 06:59 06:59
Intake Total 480 / 480 400 / 400
Balance 480 / 480 400 / 400
[2024-12-31] MEDS: ATROVENT NEBULES INH (11:39)
[2024-12-31 11:44] VITALS: BP 108/58
--- NOTE | 2024-12-31 12:33 | CM ---
food and beverage assistant manager reviewed patient's chart and met with patient and spouse at bedside, patient lives in a 2 story home, is independent with adl's and ambulation, no dme, patient drives home when stable no needs.
Plan; Home no needs when stable.
PCP: Patient does not have a PCP in area, provided list of local PCPs
Pharmacy: [facility] in [place].
[2024-12-31 15:25] VITALS: BP 145/78
--- NOTE | 2024-12-31 16:06 | W.PN.HOSP.TC ---
Today's Communication/Plan
-
Cough, respiratory status improved
Exam with no bronchospasm today.
Continue steroids weaning Decadron 22 mg every 8 hours
Continue telemetry monitoring
Pharmacologic stress test in a.m.
Assessment / Plan
Assessment / Plan
pt is a 69 year old male
Cough unclear cause--patient has had at least 3 rounds of antibiotics and oral prednisone without any improvement--chest x-ray shows no acute process--suspect either viral but less likely with normal white count and no other symptoms--versus perhaps
COPD or other lung issue exacerbation--await pulmonary--continue nebs, Pulmicort nebs, IV Decadron--would consider a CAT scan--low suspicion for PE but lung parenchyma could be evaluated--COVID and flu negative--patient denies any recent long car
trips, travel, vaccinations--will try Hycodan for cough
V. tach --monomorphic--unclear cause--potassium greater than 4 and magnesium greater than 2--while examining the patient, he had what appeared to be periods of tachycardia (SVT with aberrancy versus ventricular in nature--followed by pauses with
recurrent sinus rhythm)--patient also states that he has been referred to an electrophysiology doctor by his outpatient purchasing and fiscal clerk--I suspect he has some underlying conduction problem exacerbated by the nebulizer treatments and his primary lung
issue--apprec cardiology--echocardiogram with EF 60-65% with mild RV dilation and RV systolic function--proBNP 172, no signs of volume overload--troponin < 0.012--will likely get stress test vs cath tomorrow
essential HTN--ramipril and triamterene continued (perhaps this is an CAN inhibitor induced cough?)
DVT prophylaxis--Lovenox
CODE status--full code
Anticipated Discharge: 24 - 48 hours
Subjective/Interval History
-
Date of Service: December 31, 2024
Objective Data
-
Labs:
Laboratory Results
12/31/24
06:09
WBC 11.1 H
Hgb 12.7 L
Hct 38.8 L
Plt Count 206
Sodium 137
Potassium 4.3
Chloride 106
Carbon Dioxide 26
BUN 22 H
Creatinine 0.7
Glucose 158 H
Calcium 9.1
Vital Signs:
Vital Signs
Temp Pulse Resp BP Pulse Ox
97.6 F 57 14 145/78 97
12/31/24 15:25 12/31/24 15:47 12/31/24 15:47 12/31/24 15:25 12/31/24 15:47
I&O
12/30/24 12/31/24 01/01/25
06:59 06:59 06:59
Intake Total 480 / 480 400 / 400
Balance 480 / 480 400 / 400
Physical Exam
-
General: Well Developed and No Apparent Distress
HEENT: Normocephalic, Atraumatic and Moist Mucous Membranes
Respiratory: Clear to Auscultation
Cardiac: Regular Rhythm and S1/S2; Negative Murmur, Rub or Gallop
GI: Soft, Nontender, Nondistended and Normal Bowel Sounds; Negative Organomegaly
Rectal: Deferred by Provider
Musculoskeletal: No Clubbing, No Cyanosis and No Edema
Skin: Negative Rash
Neuro: Nonfocal/Grossly Intact
[2024-12-31] MEDS: LOVENOX 40 MG SC (17:13)
[2024-12-31 19:05] VITALS: BP 108/56
[2024-12-31] MEDS: DECADRON 2 MG IV (19:06)
[2024-12-31] MEDS: FLOMAX 0.8 MG PO (20:08)
[2024-12-31 23:15] VITALS: BP 121/50
[2025-01-01 04:00] VITALS: BP 108/62
[2025-01-01] MEDS: DECADRON 2 MG IV (04:34)
[2025-01-01] MEDS: ATROVENT NEBULES 0.5 MG INH (07:38)
[2025-01-01] MEDS: PULMICORT 0.5 MG INH (07:38)
[2025-01-01 08:22] VITALS: BP 117/57
--- NOTE | 2025-01-01 09:49 | W.PN.PUL.V3 ---
Today's Communication / Plan
-
.
Prednisone taper.
Nebulizers.
Stress test.
Increase activity.
Pulmonary will sign off- Please call with questions
Assessment
-
69-year-old man admitted to the hospital complaining of chronic cough for the last 4 weeks. Patient has been treated with prednisone and antibiotics without success.
Cough interfering with lifestyle and not associated with shortness of breath and wheezing. Came to the emergency room for evaluation. He was discovered to have a nonsustained run of VT. Admitted for further evaluation. Pulmonary consulted
12/30/2024 for coughing
Shortness of breath/cough/wheezing: Possible asthmatic bronchitis
No peripheral eosinophilia
Normal renal function and electrolytes
Negative proBNP and cardiac biomarkers.
COVID and influenza negative
Chest x-ray: No acute abnormality
Nonsustained VT in the emergency room
Echo 12/30/2024: Reviewed showed normal LVEF. No regional wall motion abnormalities. Mild RV dilatation and mild RV systolic dysfunction.
Conditions present prior admission:
Hypertension
Obstructive sleep apnea-on CPAP therapy follows up with a fire watchman in [place].
Previous history of asthmatic bronchitis in the past
Assessment and plan:
Respiratory status has improved
Wean supplemental oxygen-currently on room air. No longer wheezing on exam..
Prednisone taper-40 mg for daily 3 days, then 30 mg daily for 3 days and then 20 mg daily for 3 days and then 10 mg daily for 3 days and then discontinue
Atrovent nebulizers-can changed to as needed-avoiding albuterol with rapid atrial fibrillation.
Budesonide nebulizers
Mucolytic's
Aspiration precautions
Antitussives as needed.
Ramipril-induced cough-A diagnosis of exclusion-cough, improving while. Patient still on medication
CPAP at night-using own-follows with a Dr. Walter carrizales [place]
Cardiology following-correspondence reviewed.
Stress test 01/01/25-pending
D-dimer mildly positive.
CT angiogram negative for pulmonary embolism
DVT prophylaxis -on Lovenox.
Nutrition
Early mobilization..
Pulmonary will sign off-. Please call with questions
Outpatient pulmonary/sleep disorders. Follow-follows with Dr. Watson in [place]-told patient to obtain CT chest report provided to him
Subjective Data
-
Date of Service:
Date of Service: January 01, 2025
Chief Complaint: Pulmonary Follow Up and Dyspnea Follow Up
Subjective:
Cough and shortness of breath has improved, no complaints of shortness of breath or wheezing, tolerating CPAP
Review of Systems
General: Other ( per HPI)
Objective Data
Data Reviewed
Vital Signs / I&O:
Vital Signs
Temp Pulse Resp BP Pulse Ox
97.9 F 46 16 117/57 96
01/01/25 08:22 01/01/25 08:22 01/01/25 08:22 01/01/25 08:22 01/01/25 08:22
Intake and Output
12/31/24 01/01/25 01/02/25
06:59 06:59 06:59
Intake Total 400 / 400 1879
Balance 400 / 400 1879
SaO2: 96
Physical Exam
General: Respiratory Distress (n) and Comfortable
HEENT: Normocephalic, Anicteric and Moist Mucous Membranes
Cardiovascular: Irregular Rhythm
Respiratory: Wheeze (n), Crackles (n), Rhonchi (n), Non-Labored Respirations, Accessory Resp Muscle Use (n) and Stridor (n)
GI: Soft, Non Distended and Non Tender
Neurology: Awake and No Motor Deficits
Skin: Warm, Good Color, Cyanosis (n), Jaundice (n) and Rash (n)
Labs/Micro/Reports
Lab Data
12/31/24 06:09
12/31/24 06:09
Microbiology
12/29/24 16:29 Nasal Swab Influenza Types A & B (NUBIA) - Final
Negative for Influenza A & B, NAAT
Negative results must be combined with clinical observations
and patient history.
Nucleic Acid Amplification test (NAAT)performed on the
[employer] platform.
[2025-01-01] MEDS: ATROVENT NEBULES INH (11:09)
[2025-01-01] MEDS: DYAZIDE 1 CAPSULE PO (11:33)
[2025-01-01] MEDS: ALTACE 10 MG PO (11:36)
[2025-01-01] MEDS: DELTASONE 40 MG PO (11:36)
[2025-01-01] MEDS: MAGNESIUM OXIDE 400 MG PO (11:36)
[2025-01-01 12:03] VITALS: BP 133/65
--- NOTE | 2025-01-01 13:37 | W.PN.CARDCBS ---
Addendum entered and electronically signed by Gerardo Stokes MD 01/01/25 14:56:
69-year-old man with nonsustained VT possibly RVOT origin associated with intermittent dizziness and dyspnea. Status post exercise sestamibi today.
PMH: History of PVCs, sleep apnea, hypertension, asthmatic bronchitis
Allergies: Poorly tolerant of beta-blockers
Medications: Ramipril 10 mg a day, Dyazide daily, subcu enoxaparin, prednisone 40 mg a day, tamsulosin 0.8 mg a day
133/65, pulse 52, respiratory rate 16, lungs are clear, regular rate and rhythm, no murmurs, abdomen benign extremities without clubbing cyanosis or edema
Echo 12/30/2024: EF 60-65%, normal LV, mildly dilated RV, mild RV systolic dysfunction, mild aortic root dilatation
No labs today
Exercise sestamibi 01/01/2025: 4 minutes and 30 seconds Gonzalez protocol, stopped due to dizziness related to multiple long runs of nonsustained VT, no ST segment changes at submaximal heart rate, essentially normal perfusion, EF 56%, longest run of
nonsustained VT was 24 beats, cycle length approximately 450 ms, left bundle right inferior axis. No transient ischemic dilatation.
Telemetry: Longest run of nonsustained VT was 34 beats, most runs were 3 and 4 beats.
Plan:
The nonsustained VT that he developed on the treadmill today was impressive. He did not have evidence of ischemia, so I think does not need cardiac catheterization.
Based on his VT and presence of possible RV dysfunction on echo, arrhythmogenic right ventricular cardiomyopathy is a concern (although VT had right axis, not certain that this could be consistent with an RVOT origin). Will proceed with cardiac MRI
prior to discharge.
Discussed with EP.
Further management to be based upon the results of MRI.
Original Note:
Today's Communication / Plan
-
start cardizem cd 120mg daily
no plan for cath based on prelim results of stress test
cardiac MRI inpatient
follow on tele
Impression / Plan
-
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 Montalvo
Impression:
Presented 12/30/2024 for persistent cough, shortness of breath with wheezing
Shortness of breath
Diffuse wheezing
PVCs, nonsustained VT in emergency department
Elevated D-dimer, CT of chest negative for PE
History of PVCs
Obstructive sleep apnea
Hypertension
Echo 12/30/2024: EF 60 to 65%. Normal regional wall motion. Mild RV dilation with mild RV systolic dysfunction. Mild aortic valve dilation SVO 3.8 cm. No significant valvular disease.
Plan:
-Presented 12/30/2024 for persistent cough, shortness of breath with wheezing concerning for upper respiratory infection type symptoms. pulm following
-CTA negative for PE or significant abnormalities
-noted to have runs of NSVT, monomorphic. patient reports history of palpitations in past particularly if angry or upset. left bundle morphology, positive lead I inferiorly directed axis with transition at V3 which may represent RVOT (additionally,
transition is earlier than sinus and could therefore represent LVOT). he did have work up in past and was placed on BB however patient did not tolerate.
-echo showed preserved EF with mild RV systolic dysfunction.
-prelim stress test 01/01 without evidence of ischemia
-would initiate diltiazem 120mg daily
-K/mag stable
-discussed with patient may require cardiac MRI. based on NSVT noted during stress testing, would favor as inpatient.
-OP follow up with EP
-d/w nursing. d/w EP via TT. d/w patient and spouse (who is physician) at bedside
History of Present Illness 12/31/2024:
Patient is a pleasant 69-year-old male with a past medical history significant for hypertension, sleep apnea who presents to [facility] due to shortness of breath, cough, wheezing. Cardiology consulted due to sinus bradycardia and PVCs.
In discussion with patient and his spouse, patient is been experiencing increasing shortness of breath over the past several weeks. Patient and spouse have been on a cruise 6-8 weeks ago and following this, patient had an upper respiratory
infection but was unclear of what type of infection this was. Since then, he has experienced continued shortness of breath, cough, wheezing with mild improvement with neb treatments. While in emergency department, patient had evidence of PVCs and
NSVT on residential monitor. In discussion with patient and spouse, patient did not experience these PVCs palpitations or NSVT. However, in further discussion with spouse, patient has been experiencing more shortness of breath and palpitations which
he does not readily admit. Patient is active walking and doing physical activity but does not exercise due to abdominal hernia. Patient follows with cardiology and electrophysiology in [place] and was reported by cardiology to have upcoming
stress test this April but no other testing recently. Additionally, he had seen electrophysiology due to what sounds PVCs however patient was told that he 'was on the cusp' for needing treatment however unclear what this could entail. Patient
is a non-smoker, rare alcohol, no illicits. No significant pertinent family history. In discussion with patient today, he does report some mild improvement with shortness of breath following neb treatments. Again, in evaluation, he denies any
palpitations associated with PVCs or ectopy. Additionally, patient has not experienced near-syncope syncope or focal weakness.
Progress Note - Local Area Network Administrator
Subjective
Date of Service: January 01, 2025
remains with some cough. reports occasional palps
Objective
Labs:
12/31/24 06:09
12/31/24 06:09
Labs
Hgb 12.7 g/dL (13.0-18.0) L 12/31/24 06:09
Hct 38.8 % (39.0-52.0) L 12/31/24 06:09
Plt Count 206 10^3/uL (130-400) 12/31/24 06:09
Sodium 137 mmol/L (135-145) 12/31/24 06:09
Potassium 4.3 mmol/L (3.5-5.1) 12/31/24 06:09
BUN 22 mg/dl (9-20) H 12/31/24 06:09
Creatinine 0.7 mg/dL (0.7-1.3) 12/31/24 06:09
Glucose 158 mg/dl (70-99) H 12/31/24 06:09
Troponins
12/29/24
16:29
Troponin I < 0.012
Vital Signs and I&O:
Vital Signs
Temp Pulse Resp BP Pulse Ox
97.4 F 52 16 133/65 100
01/01/25 12:03 01/01/25 12:03 01/01/25 12:03 01/01/25 12:03 01/01/25 12:03
Vital Signs
Temp Pulse Resp BP Pulse Ox
97.4 F 52 16 133/65 100
01/01/25 12:03 01/01/25 12:03 01/01/25 12:03 01/01/25 12:03 01/01/25 12:03
Intake & Output
12/30/24 12/31/24 01/01/25 01/02/25
07:59 07:59 07:59 07:59
Intake Total 480 / 480 400 / 400 1879
Balance 480 / 480 400 / 400 1879
Physical Exam
Physical Exam
GEN: No distress, awake, alert, oriented x3. sitting in chair
HEENT: supple, anicteric, mmm, eomi
LUNGS: CTA B/L, no wheezes/rales
CV: Reg, S1/S2, no murmur
ABD: soft, BS+, NT/ND
EXT: No cyanosis, clubbing, edema
NEURO: Gross non-focal
SKIN: Warm, pink, dry. No rash
[2025-01-01] MEDS: CARDIZEM CD 120 MG PO (13:57)
--- NOTE | 2025-01-01 14:22 | W.PN.HOSP.TC ---
Today's Communication/Plan
-
Cardiac MRI.
Observe off corticosteroids
Assessment / Plan
Assessment / Plan
pt is a 69 year old male
Cough unclear cause--patient has had at least 3 rounds of antibiotics and oral prednisone without any improvement--chest x-ray shows no acute process--suspect either viral but less likely with normal white count and no other symptoms--versus perhaps
COPD or other lung issue exacerbation--await pulmonary--continue nebs, Pulmicort nebs, IV Decadron--would consider a CAT scan--low suspicion for PE but lung parenchyma could be evaluated--COVID and flu negative--patient denies any recent long car
trips, travel, vaccinations--will try Hycodan for cough. Overall respiratory status improved with complete resolution of bronchospasm. Observe off corticosteroids
V. tach --monomorphic--unclear cause--potassium greater than 4 and magnesium greater than 2--while examining the patient, he had what appeared to be periods of tachycardia (SVT with aberrancy versus ventricular in nature--followed by pauses with
recurrent sinus rhythm)--patient also states that he has been referred to an electrophysiology doctor by his outpatient commercial interior designer--I suspect he has some underlying conduction problem exacerbated by the nebulizer treatments and his primary lung
issue--apprec cardiology--echocardiogram with EF 60-65% with mild RV dilation and RV systolic function--proBNP 172, no signs of volume overload--troponin < 0.012
Nuclear stress test showed no evidence for ischemia, although with multiple episodes of ventricular tachycardia. That along with RV dysfunction on echocardiogram could be indicative of some arrhythmogenic right ventricular cardiomyopathy. Patient
will need further structural evaluation with cardiac MRI.
essential HTN--ramipril and triamterene continued (perhaps this is an CAN inhibitor induced cough?)
DVT prophylaxis--Lovenox
CODE status--full code
Anticipated Discharge: 24 - 48 hours
Subjective/Interval History
-
Date of Service: January 01, 2025
Objective Data
-
Vital Signs:
Vital Signs
Temp Pulse Resp BP Pulse Ox
97.4 F 52 16 133/65 100
01/01/25 12:03 01/01/25 12:03 01/01/25 12:03 01/01/25 12:03 01/01/25 12:03
I&O
12/31/24 01/01/25 01/02/25
06:59 06:59 06:59
Intake Total 400 / 400 1879
Balance 400 / 400 1879
Physical Exam
-
General: Well Developed and No Apparent Distress
HEENT: Normocephalic, Atraumatic and Moist Mucous Membranes
Respiratory: Clear to Auscultation
Cardiac: Regular Rhythm and S1/S2; Negative Murmur, Rub or Gallop
GI: Soft, Nontender, Nondistended and Normal Bowel Sounds; Negative Organomegaly
Rectal: Deferred by Provider
Musculoskeletal: No Clubbing, No Cyanosis and No Edema
Skin: Negative Rash
Neuro: Nonfocal/Grossly Intact
[2025-01-01 15:10] VITALS: BP 124/54
--- NOTE | 2025-01-01 16:08 | CM ---
Home no needs.
plan; Home no needs.
[2025-01-01] MEDS: LOVENOX 40 MG SC (17:03)
[2025-01-01 19:10] VITALS: BP 112/58
[2025-01-01] MEDS: FLOMAX 0.8 MG PO (19:19)
[2025-01-01] MEDS: PULMICORT INH (19:37)
[2025-01-01 22:53] VITALS: BP 110/56
[2025-01-02] VITALS (8 sets, daily range): BP systolic 94–122; BP diastolic 44–60; PULSE 56–61
[2025-01-02] MEDS: CARDIZEM CD 120 MG PO (07:44)
[2025-01-02] MEDS: DYAZIDE 1 CAPSULE PO (07:44)
[2025-01-02] MEDS: MAGNESIUM OXIDE 400 MG PO (07:44)
[2025-01-02] MEDS: ALTACE 10 MG PO (07:44)
[2025-01-02] MEDS: PULMICORT INH (07:53)
--- NOTE | 2025-01-02 10:52 | W.PN.CARDCBS ---
Addendum entered and electronically signed by Anibal Echeverria MD 01/02/25 17:36:
# Hypertension: Blood pressure is marginal here
Stop ramipril
We discussed monitoring blood pressure on a regular basis at home and further medication titration can be performed based on these readings
Addendum entered and electronically signed by Anibal Echeverria MD 01/02/25 17:34:
I saw and examined the patient.
The Carpet Measurer's note was reviewed and I agree with the note.
Comment: Briefly, 69-year-old man presenting with shortness of breath and cough diagnosed with asthmatic bronchitis. While here he was seen to have frequent PVCs and episodes of nonsustained VT on telemetry for which cardiology was consulted.
#PVCs/NSVT
PVCs were identified previously and patient was started on metoprolol however he was intolerant to this medication and discontinued it after a few days
Diltiazem has been started here, would continue and monitor on telemetry
Replete electrolytes K >4, Mg >2
Transthoracic echocardiogram with normal LV function and mildly reduced right ventricular systolic function
Cardiac MRI with mildly depressed biventricular failure and mild scarring at the base of the LV inferolateral wall
Exercise nuclear stress test with salvos of nonsustained VT during exercise, but normal perfusion imaging
Discussed with the EP
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
Plan is to discharge on diltiazem with outpatient traffic monitor specialist for 2 weeks and then follow-up in our office
#AFib
Approximately 2 hours of atrial fibrillation this morning on telemetry which is a new diagnosis for him
Continue diltiazem as above for rate control
We discussed CPAP compliance and limiting alcohol intake
Recommend starting Eliquis for risk reduction of cardioembolic stroke and patient is agreeable
Discussed in detail with patient and his partner at bedside
Original Note:
Today's Communication / Plan
-
await cardiac MRI results
continue cardizem cd
follow rhythm, now appears to be in rate controlled afib. discuss initiation of OAC if no additional testing needed
Impression / Plan
-
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 Montalvo
Impression:
Presented 12/30/2024 for persistent cough, shortness of breath with wheezing
Shortness of breath
Diffuse wheezing
PVCs, nonsustained VT in emergency department
Elevated D-dimer, CT of chest negative for PE
History of PVCs
Obstructive sleep apnea
Hypertension
Echo 12/30/2024: EF 60 to 65%. Normal regional wall motion. Mild RV dilation with mild RV systolic dysfunction. Mild aortic valve dilation SVO 3.8 cm. No significant valvular disease.
Plan:
- Presented 12/30/2024 for persistent cough, shortness of breath with wheezing concerning for upper respiratory infection type symptoms. pulm following
- CTA negative for PE or significant abnormalities
- noted to have runs of NSVT, monomorphic. patient reports history of palpitations in past particularly if angry or upset. left bundle morphology, positive lead I inferiorly directed axis with transition at V3 which may represent RVOT (additionally,
transition is earlier than sinus and could therefore represent LVOT). he did have work up in past and was placed on BB however patient did not tolerate.
- Echo showed preserved EF with mild RV systolic dysfunction
- Lexiscan nuclear stress test 01/[address] segment changes at peak exercise, essentially normal myocardial perfusion imaging with no evidence of ischemia but multiple long runs of NSVT up to 24 beats in length
- Cardiac MRI pending
- Will discuss MRI results with EP to determine additional testing/medications.
- on review of tele overnight, around 6:30AM patient appears to have gone into rate controlled afib. remains with frequent PVCs as well as brief runs of NSVT mostly 3-6 beats. remains asymptomatic
- Continue Cardizem CD 120 mg HS started this admission
- K/mag stable as of 12/31
- will need to discuss OAC
- OP follow up with EP
- d/w patient and spouse (who is physician) at bedside. they would like to transfer their care to [facility].
History of Present Illness 12/31/2024:
Patient is a pleasant 69-year-old male with a past medical history significant for hypertension, sleep apnea who presents to [facility] due to shortness of breath, cough, wheezing. Cardiology consulted due to sinus bradycardia and PVCs.
In discussion with patient and his spouse, patient is been experiencing increasing shortness of breath over the past several weeks. Patient and spouse have been on a cruise 6-8 weeks ago and following this, patient had an upper respiratory
infection but was unclear of what type of infection this was. Since then, he has experienced continued shortness of breath, cough, wheezing with mild improvement with neb treatments. While in emergency department, patient had evidence of PVCs and
NSVT on cafeteria monitor. In discussion with patient and spouse, patient did not experience these PVCs palpitations or NSVT. However, in further discussion with spouse, patient has been experiencing more shortness of breath and palpitations which
he does not readily admit. Patient is active walking and doing physical activity but does not exercise due to abdominal hernia. Patient follows with cardiology and electrophysiology in [place] and was reported by cardiology to have upcoming
stress test this April but no other testing recently. Additionally, he had seen electrophysiology due to what sounds PVCs however patient was told that he 'was on the cusp' for needing treatment however unclear what this could entail. Patient
is a non-smoker, rare alcohol, no illicits. No significant pertinent family history. In discussion with patient today, he does report some mild improvement with shortness of breath following neb treatments. Again, in evaluation, he denies any
palpitations associated with PVCs or ectopy. Additionally, patient has not experienced near-syncope syncope or focal weakness.
Progress Note - Circular Clerk
Subjective
Date of Service: January 02, 2025
no issues overnight. tired. cough improving
Objective
Labs:
12/31/24 06:09
12/31/24 06:09
Labs
Hgb 12.7 g/dL (13.0-18.0) L 10/13/25 06:09
Hct 38.8 % (39.0-52.0) L 12/31/24 06:09
Plt Count 206 10^3/uL (130-400) 12/31/24 06:09
Sodium 137 mmol/L (135-145) 12/31/24 06:09
Potassium 4.3 mmol/L (3.5-5.1) 12/31/24 06:09
BUN 22 mg/dl (9-20) H 12/31/24 06:09
Creatinine 0.7 mg/dL (0.7-1.3) 12/31/24 06:09
Glucose 158 mg/dl (70-99) H 12/31/24 06:09
Vital Signs and I&O:
Vital Signs
Temp Pulse Resp BP Pulse Ox
97.6 F 58 18 120/51 99
01/02/25 07:00 01/02/25 07:00 01/02/25 07:00 01/02/25 07:00 01/02/25 07:00
Vital Signs
Temp Pulse Resp BP Pulse Ox
97.6 F 58 18 120/51 99
01/02/25 07:00 01/02/25 07:00 01/02/25 07:00 01/02/25 07:00 01/02/25 07:00
Intake & Output
12/31/24 01/01/25 01/02/25 01/03/25
07:59 07:59 07:59 07:59
Intake Total 400 / 400 1880 / 1880 480 / 480
Balance 400 / 400 1880 / 1880 480 / 480
Physical Exam
Physical Exam
GEN: No distress, awake, alert, oriented x3. sitting in chair
HEENT: supple, anicteric, mmm, eomi
LUNGS: no audible wheezes
CV: Irreg with frequent ectopy on tele
ABD: soft, BS+, NT/ND
EXT: No cyanosis, clubbing, edema
NEURO: Gross non-focal
SKIN: Warm, pink, dry. No rash
[2025-01-02] MEDS: ANESTHETIC LOZENGE 1 LOZENGE PO ×3 (11:26→20:16)
--- NOTE | 2025-01-02 12:44 | CM ---
Chart reviewed, home when stable.
Plan; Home when stable.
[2025-01-02] MEDS: ATROVENT NEBULES 0.5 MG INH (13:06)
[2025-01-02] MEDS: HYCODAN SYRUP 10 ML PO ×2 (13:57→20:21)
--- NOTE | 2025-01-02 14:30 | W.PN.HOSP.TC ---
Today's Communication/Plan
-
Cardiac MRI
Telemetry monitoring
Initiated on Cardizem
Resume corticosteroids with lower dose prednisone 20 mg a day
Continue mucolytic's and cough suppressants
Assessment / Plan
Assessment / Plan
pt is a 69 year old male
Cough unclear cause--patient has had at least 3 rounds of antibiotics and oral prednisone without any improvement--chest x-ray shows no acute process--suspect either viral but less likely with normal white count and no other symptoms--versus perhaps
COPD or other lung issue exacerbation--await pulmonary--continue nebs, Pulmicort nebs, IV Decadron--would consider a CAT scan--low suspicion for PE but lung parenchyma could be evaluated--COVID and flu negative--patient denies any recent long car
trips, travel, vaccinations--will try Hycodan for cough. Overall respiratory status improved with complete resolution of bronchospasm. Observe off corticosteroids
V. tach --monomorphic--unclear cause--potassium greater than 4 and magnesium greater than 2--while examining the patient, he had what appeared to be periods of tachycardia (SVT with aberrancy versus ventricular in nature--followed by pauses with
recurrent sinus rhythm)--patient also states that he has been referred to an electrophysiology doctor by his outpatient tack maker--I suspect he has some underlying conduction problem exacerbated by the nebulizer treatments and his primary lung
issue--apprec cardiology--echocardiogram with EF 60-65% with mild RV dilation and RV systolic function--proBNP 172, no signs of volume overload--troponin < 0.012
Nuclear stress test showed no evidence for ischemia, although with multiple episodes of ventricular tachycardia. That along with RV dysfunction on echocardiogram could be indicative of some arrhythmogenic right ventricular cardiomyopathy. Cardiac
MRI results pending
Telemetry consistent with paroxysmal A-fib.
Follow-up ECG with sinus bradycardia.
Initiated on Cardizem.
Further discussion in terms of thromboembolic prophylaxis pending additional workup including MRI
essential HTN--ramipril and triamterene continued (perhaps this is an CAN inhibitor induced cough?)
DVT prophylaxis--Lovenox
CODE status--full code
Anticipated Discharge: 24 - 48 hours
Subjective/Interval History
-
Date of Service: January 02, 2025
Objective Data
-
Vital Signs:
Vital Signs
Temp Pulse Resp BP Pulse Ox
97.7 F 62 16 97/44 97
01/02/25 11:00 01/02/25 11:00 01/02/25 11:00 01/02/25 11:00 01/02/25 11:00
I&O
01/01/25 01/02/25 01/03/25
06:59 06:59 06:59
Intake Total 1879 480 / 480
Balance 1879 480 / 480
Physical Exam
-
General: Well Developed and No Apparent Distress
HEENT: Normocephalic, Atraumatic and Moist Mucous Membranes
Respiratory: Clear to Auscultation
Cardiac: Regular Rhythm and S1/S2; Negative Murmur, Rub or Gallop
GI: Soft, Nontender, Nondistended and Normal Bowel Sounds; Negative Organomegaly
Rectal: Deferred by Provider
Musculoskeletal: No Clubbing, No Cyanosis and No Edema
Skin: Negative Rash
Neuro: Nonfocal/Grossly Intact
[2025-01-02] MEDS: LOVENOX 40 MG SC (17:24)
[2025-01-02] MEDS: PULMICORT 0.5 MG INH (19:48)
[2025-01-02] MEDS: MUCINEX 600 MG PO (20:16)
[2025-01-02] MEDS: ELIQUIS 5 MG PO (20:16)
[2025-01-02] MEDS: FLOMAX 0.8 MG PO (20:17)
[2025-01-03] VITALS (7 sets, daily range): BP systolic 96–161; BP diastolic 53–66; PULSE 69–70
--- NOTE | 2025-01-03 00:05 | PTCARENOTE ---
pt provided w/ information on afib, Cardizem, and Eliquis. discussed meds, side effects, and when to f/u with doctor. pt said he would read handouts thoroughly
[2025-01-03] MEDS: PULMICORT 0.5 MG INH ×2 (07:58→19:33)
[2025-01-03] MEDS: MAGNESIUM OXIDE 400 MG PO (08:49)
[2025-01-03] MEDS: DELTASONE 20 MG PO (08:50)
[2025-01-03] MEDS: DYAZIDE 1 CAPSULE PO (08:50)
[2025-01-03] MEDS: MUCINEX 600 MG PO ×2 (08:50→20:43)
[2025-01-03] MEDS: ELIQUIS 5 MG PO (08:50)
[2025-01-03] MEDS: ATROVENT NEBULES 0.5 MG INH ×2 (11:41→19:34)
[2025-01-03 11:59] LABS: Blood Urea Nitrogen 33 mg/dl (9-20); Calcium 9.4 mg/dl (8.4-10.2); Carbon Dioxide 23 mmol/L (22-30); Chloride 102 mmol/L (98-107); Estimated Creatinine Clearance 66 ml/min; Glucose 180 mg/dl (70-99); Magnesium 2.3 mg/dl (1.6-2.3); Potassium 4.3 mmol/L (3.5-5.1); Sodium 133 mmol/L (135-145); eGFR > 60.00
--- NOTE | 2025-01-03 13:49 | W.PN.CARDCBS ---
Addendum entered and electronically signed by Reilly Vidal MD 01/03/25 14:27:
I saw and examined the patient.
The VISCOSE CELLAR CHARGE HAND or PA's note was reviewed and I agree with the note.
Comment: General: Well developed, well nourished in NAD.
Neck: Supple, no JVD, HJR, carotids +2 B/L, no bruits bilaterally.
Heart: Non displaced PMI, RRR, no murmurs, No S3, S4, no rubs.
Lungs: Clear to auscultation bilaterally, no wheeze, rhonchi, rubs bilaterally,
normal expiratory phase.
Extremities: No clubbing, cyanosis or edema bilaterally.
Neuro: Grossly nonfocal, awake, alert and oriented x3.
Continues with episodes of nonsustained V. tach. Given his coronary MRI will raise cardiac catheterization to exclude CAD. Eliquis on hold. Likely for outpatient EP evaluation with EP study depending on results of catheterization. Eventual
restart of Eliquis given atrial fibrillation noted on telemetry during admission.
Original Note:
Today's Communication / Plan
-
NPO for cath tomorrow
eliquis on hold
holding dyazide, Cr 1.2 on 01/03
follow on tele. continue cardizem cd
likely for OP EP eval and EP study
Impression / Plan
-
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 Montalvo
Impression:
Presented 12/30/2024 for persistent cough, shortness of breath with wheezing
Shortness of breath
Diffuse wheezing
PVCs, nonsustained VT in emergency department
Elevated D-dimer, CT of chest negative for PE
History of PVCs
Obstructive sleep apnea
Hypertension
Echo 12/30/2024: EF 60 to 65%. Normal regional wall motion. Mild RV dilation with mild RV systolic dysfunction. Mild aortic valve dilation SVO 3.8 cm. No significant valvular disease.
Plan:
- Presented 12/30/2024 for persistent cough, shortness of breath with wheezing concerning for upper respiratory infection type symptoms. pulm following
- CTA negative for PE or significant abnormalities
- noted to have runs of NSVT, monomorphic. patient reports history of palpitations in past particularly if angry or upset. left bundle morphology, positive lead I inferiorly directed axis with transition at V3 which may represent RVOT (additionally,
transition is earlier than sinus and could therefore represent LVOT). he did have work up in past and was placed on BB however patient did not tolerate.
- Echo showed preserved EF with mild RV systolic dysfunction
- Lexiscan nuclear stress test 01/[address] segment changes at peak exercise, essentially normal myocardial perfusion imaging with no evidence of ischemia but multiple long runs of NSVT up to 24 beats in length
- Cardiac MRI with evidence of anterolateral scar. reviewed with EP 01/03. would plan for cardiac catheterization in AM. hold eliquis, started 01/02 due to new PAF noted on tele
- remains with runs up to 17 beats of NSVT on review of tele overnight. continue cardizem cd 120mg daily
- K/mag stable
- OP follow up with EP with likely EP study pending response to diltiazem
- d/w patient and spouse (who is physician) at bedside. they would like to transfer their care to [facility] upon DC
- d/w hospitalist
History of Present Illness 12/31/2024:
Patient is a pleasant 69-year-old male with a past medical history significant for hypertension, sleep apnea who presents to [facility] due to shortness of breath, cough, wheezing. Cardiology consulted due to sinus bradycardia and PVCs.
In discussion with patient and his spouse, patient is been experiencing increasing shortness of breath over the past several weeks. Patient and spouse have been on a cruise 6-8 weeks ago and following this, patient had an upper respiratory
infection but was unclear of what type of infection this was. Since then, he has experienced continued shortness of breath, cough, wheezing with mild improvement with neb treatments. While in emergency department, patient had evidence of PVCs and
NSVT on activities officer. In discussion with patient and spouse, patient did not experience these PVCs palpitations or NSVT. However, in further discussion with spouse, patient has been experiencing more shortness of breath and palpitations which
he does not readily admit. Patient is active walking and doing physical activity but does not exercise due to abdominal hernia. Patient follows with cardiology and electrophysiology in [place] and was reported by cardiology to have upcoming
stress test this April but no other testing recently. Additionally, he had seen electrophysiology due to what sounds PVCs however patient was told that he 'was on the cusp' for needing treatment however unclear what this could entail. Patient
is a non-smoker, rare alcohol, no illicits. No significant pertinent family history. In discussion with patient today, he does report some mild improvement with shortness of breath following neb treatments. Again, in evaluation, he denies any
palpitations associated with PVCs or ectopy. Additionally, patient has not experienced near-syncope syncope or focal weakness.
Progress Note - Front Of House Manager
Subjective
Date of Service: January 03, 2025
no issues overnight
Objective
Labs:
12/31/24 06:09
01/03/25 11:27
Labs
Hgb 12.7 g/dL (13.0-18.0) L 12/31/24 06:09
Hct 38.8 % (39.0-52.0) L 12/31/24 06:09
Plt Count 206 10^3/uL (130-400) 12/31/24 06:09
Sodium 133 mmol/L (135-145) L 01/03/25 11:27
Potassium 4.3 mmol/L (3.5-5.1) 01/03/25 11:27
BUN 33 mg/dl (9-20) H 01/03/25 11:27
Creatinine 1.2 mg/dL (0.7-1.3) 01/03/25 11:27
Glucose 180 mg/dl (70-99) H 01/03/25 11:27
Vital Signs and I&O:
Vital Signs
Temp Pulse Resp BP Pulse Ox
98.2 F 61 16 116/58 97
01/03/25 11:00 01/03/25 11:45 01/03/25 11:45 01/03/25 11:00 01/03/25 11:45
Vital Signs
Temp Pulse Resp BP Pulse Ox
98.2 F 61 16 116/58 97
01/03/25 11:00 01/03/25 11:45 01/03/25 11:45 01/03/25 11:00 01/03/25 11:45
Intake & Output
01/01/25 01/02/25 01/03/25 01/04/25
07:59 07:59 07:59 07:59
Intake Total 1879 / 1879 480 / 480 400 / 400
Balance 1879 480 / 480 400 / 400
Physical Exam
Physical Exam
GEN: No distress, awake, alert, oriented x3
HEENT: supple, anicteric, mmm, eomi
LUNGS: CTA B/L, no wheezes/rales
CV: Reg, S1/S2, no murmur
ABD: soft, BS+, NT/ND
EXT: No cyanosis, clubbing, edema
NEURO: Gross non-focal
SKIN: Warm, pink, dry. No rash
--- NOTE | 2025-01-03 14:46 | CM ---
Home when stable, patient is independent with adl's and ambulation.
Plan; Home no needs at discharge.
--- NOTE | 2025-01-03 15:33 | W.PN.HOSP.TC ---
Today's Communication/Plan
-
Cardiac cath
Telemetry
Hold diuretics to minimize risk for LIZZIE.
Ramipril discontinued.
Continue prednisone 20 mg for acute asthmatic bronchitis with plan to start tapering over the next 24 hours.
Assessment / Plan
Assessment / Plan
pt is a 69 year old male
Cough unclear cause--patient has had at least 3 rounds of antibiotics and oral prednisone without any improvement--chest x-ray shows no acute process--suspect either viral but less likely with normal white count and no other symptoms--versus perhaps
COPD or other lung issue exacerbation--await pulmonary--continue nebs, Pulmicort nebs, IV Decadron--would consider a CAT scan--low suspicion for PE but lung parenchyma could be evaluated--COVID and flu negative--patient denies any recent long car
trips, travel, vaccinations--will try Hycodan for cough. Overall respiratory status improved with complete resolution of bronchospasm. Observe off corticosteroids
V. tach --monomorphic--unclear cause--potassium greater than 4 and magnesium greater than 2--while examining the patient, he had what appeared to be periods of tachycardia (SVT with aberrancy versus ventricular in nature--followed by pauses with
recurrent sinus rhythm)--patient also states that he has been referred to an electrophysiology doctor by his outpatient cigar wrapper tender automatic--I suspect he has some underlying conduction problem exacerbated by the nebulizer treatments and his primary lung
issue--apprec cardiology--echocardiogram with EF 60-65% with mild RV dilation and RV systolic function--proBNP 172, no signs of volume overload--troponin < 0.012
Nuclear stress test showed no evidence for ischemia, although with multiple episodes of ventricular tachycardia. That along with RV dysfunction on echocardiogram could be indicative of some arrhythmogenic right ventricular cardiomyopathy. Cardiac
MRI results consistent with mild scarring in the inferior lateral wall of the left ventricular base, mildly impaired global systolic LV function and global systolic RV function. With this finding there is a reasonable concern for CAD with plan for
cardiac cath on 01/04.
Telemetry consistent with paroxysmal A-fib.
Follow-up ECG with sinus bradycardia.
Initiated on Cardizem.
Initiated on Eliquis
essential HTN--BP has been marginal with initiation of Cardizem. Ramipril discontinued. Hold thiazide diuretic to minimize LIZZIE risk with pending cath.
Patient complains of a chronic right foot numbness which is intermittent and positional. Denies back pain. No other focal findings on neurologic exam. Recommended outpatient follow-up including imaging with MRI of the lumbar spine.
DVT prophylaxis--Lovenox
CODE status--full code
Anticipated Discharge: 24 - 48 hours
Subjective/Interval History
-
Date of Service: January 03, 2025
Objective Data
-
Labs:
Laboratory Results
01/03/25
11:27
Sodium 133 L
Potassium 4.3
Chloride 102
Carbon Dioxide 23
BUN 33 H
Creatinine 1.2
Glucose 180 H
Calcium 9.4
Vital Signs:
Vital Signs
Temp Pulse Resp BP Pulse Ox
98.2 F 61 16 116/58 97
01/03/25 11:00 01/03/25 11:45 01/03/25 11:45 01/03/25 11:00 01/03/25 11:45
I&O
01/02/25 01/03/25 01/04/25
06:59 06:59 06:59
Intake Total 480 / 480 400 / 400
Balance 480 / 480 400 / 400
Physical Exam
-
General: Well Developed and No Apparent Distress
HEENT: Normocephalic, Atraumatic and Moist Mucous Membranes
Respiratory: Clear to Auscultation
Cardiac: Regular Rhythm and S1/S2; Negative Murmur, Rub or Gallop
GI: Soft, Nontender, Nondistended and Normal Bowel Sounds; Negative Organomegaly
Rectal: Deferred by Provider
Musculoskeletal: No Clubbing, No Cyanosis and No Edema
Skin: Negative Rash
Neuro: Nonfocal/Grossly Intact
[2025-01-03] MEDS: CARDIZEM CD 120 MG PO (20:55)
[2025-01-03] MEDS: FLOMAX 0.8 MG PO (20:56)
[2025-01-04] VITALS (9 sets, daily range): BP systolic 102–128; BP diastolic 55–68
[2025-01-04] MEDS: LOW STRENGTH ASPIRIN 324 MG PO (07:00)
[2025-01-04] MEDS: ATROVENT NEBULES 0.5 MG INH ×2 (08:08→20:01)
[2025-01-04] MEDS: PULMICORT 0.5 MG INH ×2 (08:08→20:01)
[2025-01-04] MEDS: MUCINEX 600 MG PO ×2 (09:12→19:40)
[2025-01-04] MEDS: DELTASONE 20 MG PO (09:12)
[2025-01-04] MEDS: MAGNESIUM OXIDE 400 MG PO (09:12)
[2025-01-04 10:35] LABS: Hematocrit 38.0 % (39.0-52.0); Hemoglobin 12.9 g/dL (13.0-18.0); Mean Corp Hgb Conc. 33.9 g/dL (33.0-37.0); Mean Corpuscular Volume 89.2 fL (80.0-94.0); Platelet Count 185 10^3/uL (130-400); Red Cell Dist. Width 14.0 % (11.5-14.5)
[2025-01-04 11:13] LABS: Blood Urea Nitrogen 24 mg/dl (9-20); Calcium 9.2 mg/dl (8.4-10.2); Carbon Dioxide 29 mmol/L (22-30); Chloride 104 mmol/L (98-107); Estimated Creatinine Clearance 98 ml/min; Glucose 106 mg/dl (70-99); Potassium 3.9 mmol/L (3.5-5.1); Sodium 135 mmol/L (135-145); eGFR > 60.00
--- NOTE | 2025-01-04 11:25 | CM ---
Patient is independent with adl's and ambulation, no dme, home no needs.
Plan; Home no needs.
--- NOTE | 2025-01-04 13:18 | ITS.CL.CATH ---
Child Nurse - Catheterization
Cardiac Catheterization
Procedure Report:
LEFT HEART CATHETERIZATION
Date of Procedure: January 04, 2025
Referring: Luiz Lamas MD
PROCEDURES:
1. Left heart catheterization, coronary angiogram.
2. Moderate sedation.
3. Functional physiologic testing with IFR of ostial RCA.
INDICATION: Ongoing episodes of nonsustained ventricular tachycardia with inferolateral scar noted on cardiac MRI, being referred to coronary angiogram to rule out obstructive CAD.
ACCESS: Right radial artery, 6Fr. sheath, under US guidance.
HEMODYNAMICS : (mmHg)
AO (s/d) : 102/62
LVEDP : 20
No significant gradient across the aortic valve to suggest aortic stenosis.
CORONARY FINDINGS: The left coronary artery was selectively engaged using a 6 Greek AL 2 diagnostic catheter after failing with a JL 3.5, JL 4.0, AL-1.
Dominance: Right
Left Main Trunk (LMT): Large caliber vessel that gives rise to the LAD and LCx branches and is free of angiographic disease.
Left Anterior Descending Artery (LAD): Large caliber vessel that gives off 2 major diagonal branches as it courses along the anterior inter-ventricular groove before wrapping around the cardiac apex. There is mild diffuse atherosclerotic plaque.
Left Circumflex Artery (LCx): Large caliber vessel that gives off 2 major obtuse marginal (OM) branches as it courses along the atrio-ventricular (AV) groove. There is mild diffuse atherosclerotic plaque. OM 2 in the proximal portion has diffuse
20% stenosis.
Right Coronary Artery (RCA): Large caliber dominant vessel that gives rise to the posterior descending artery (RPDA) and postero-lateral ventricular (RPLV) branches distally. Ostial RCA has a mildly calcified eccentric 60% stenosis which was IFR
negative at 0.95. Mid and distal LAD has serial 50 to 60% calcified stenoses. -3 flow into the distal vessel.
HEMODYNAMIC ASSESSMENT OF THE OSTIAL RCA WITH A Datam OMNI WIRE: The origin of the ostial RCA was cannulated with a 6 Fr JR4 guide catheter. Intravenous heparin was administered and the ACT was followed during the procedure. Two hundred
micrograms of intracoronary nitroglycerin was given through the guide catheter. A [employer] Omni wire was advanced to the guide catheter tip and normalized just outside the guide catheter. The Omni wire was then carefully manipulated across the
stenosis in the ostial RCA with the iFR of the ischemic threshold measuring 0.95. The Omni wire was then pulled back to the guide catheter where the Pd/Pa measured 1.0 confirming no baseline drift in pressure readings.
SEDATION: 47 minutes of procedural sedation was utilized. IV Midazolam and IV Fentanyl were administered. An independent medical insurance claims processor was present to assist with and help manage the patient's level of consciousness and physiologic status.
RADIATION SUMMARY: Fluoro Time (min): 11.6, Dose (mGy): 508.59, DAP (Gy.cm2) : 34.7
Closure Device: There were no immediate intra-procedural complications. The sheath was pulled in the labor relations director and a vascular-band applied to the right wrist for radial artery hemostasis using the patent hemostasis technique.
CONCLUSIONS
1. Ostial RCA has a mildly calcified eccentric 60% stenosis which was IFR negative at 0.95. Mid and distal LAD has serial 50 to 60% calcified stenoses. -3 flow into the distal vessel.
2. There is mild diffuse atherosclerotic plaque in the left coronary artery.
3. LVEDP of 20 mmHg.
RECOMMENDATIONS
1. Wean radial band per protocol. Monitor right hand perfusion and for bleeding from the radial site following removal of the vascular-band following trans-radial access.
2. Continue aggressive medical therapy and risk factor modification for secondary CAD prevention.
3. Hydrate with normal saline to mitigate the risk of contrast-induced acute kidney injury.
4. Follow-up with electrophysiology as an outpatient.
Alicia Adorno MD, [facility], [facility]
Copy to: Luiz Lamas MD
[2025-01-04] MEDS: NSS 1000 IV (14:38)
--- NOTE | 2025-01-04 15:56 | W.PN.HOSP.TC ---
Today's Communication/Plan
-
Adjustment of cardiovascular regimen with new diagnosis of paroxysmal A-fib and CAD as well as NSVT.
Consideration of transition of Cardizem to beta-jazzmine pending discussion with EP.
Stop Dyazide
Off lisinopril given marginal BP
Continue statin.
Consider aspirin.
Resume Eliquis.
Respiratory status stable with no wheezing.
Cough improved.
Reduce prednisone to 10 mg for additional 2 to 3 days
Add Afrin for nasal congestion
Assessment / Plan
Assessment / Plan
pt is a 69 year old male
Cough unclear cause--patient has had at least 3 rounds of antibiotics and oral prednisone without any improvement--chest x-ray shows no acute process--suspect either viral but less likely with normal white count and no other symptoms--versus perhaps
COPD or other lung issue exacerbation--await pulmonary--continue nebs, Pulmicort nebs, IV Decadron--would consider a CAT scan--low suspicion for PE but lung parenchyma could be evaluated--COVID and flu negative--patient denies any recent long car
trips, travel, vaccinations--will try Hycodan for cough. Overall respiratory status improved with complete resolution of bronchospasm. Observe off corticosteroids
V. tach --monomorphic--unclear cause--potassium greater than 4 and magnesium greater than 2--while examining the patient, he had what appeared to be periods of tachycardia (SVT with aberrancy versus ventricular in nature--followed by pauses with
recurrent sinus rhythm)--patient also states that he has been referred to an electrophysiology doctor by his outpatient retail representative--I suspect he has some underlying conduction problem exacerbated by the nebulizer treatments and his primary lung
issue--apprec cardiology--echocardiogram with EF 60-65% with mild RV dilation and RV systolic function--proBNP 172, no signs of volume overload--troponin < 0.012
Nuclear stress test showed no evidence for ischemia, although with multiple episodes of ventricular tachycardia. That along with RV dysfunction on echocardiogram could be indicative of some arrhythmogenic right ventricular cardiomyopathy. Cardiac
MRI results consistent with mild scarring in the inferior lateral wall of the left ventricular base, mildly impaired global systolic LV function and global systolic RV function.
Cath 01/05 with nonobstructive CAD
1. Ostial RCA has a mildly calcified eccentric 60% stenosis which was IFR negative at 0.95. Mid and distal LAD has serial 50 to 60% calcified stenoses. -3 flow into the distal vessel.
2. There is mild diffuse atherosclerotic plaque in the left coronary artery.
3. LVEDP of 20 mmHg.
Adjust medication regimen for CAD as per cardiology
Paroxysmal atrial fibrillation, new diagnosis
Initiated on Cardizem.
Initiated on Eliquis
essential HTN--BP has been marginal with initiation of Cardizem. Ramipril discontinued. Stop Dyazide
Patient complains of a chronic right foot numbness which is intermittent and positional. Denies back pain. No other focal findings on neurologic exam. Recommended outpatient follow-up including imaging with MRI of the lumbar spine.
DVT prophylaxis--Lovenox
CODE status--full code
Anticipated Discharge: 24 - 48 hours
Subjective/Interval History
-
Date of Service: January 04, 2025
Objective Data
-
Labs:
Laboratory Results
01/04/25
10:28
WBC 10.0
Hgb 12.9 L
Hct 38.0 L
Plt Count 185
Sodium 135
Potassium 3.9
Chloride 104
Carbon Dioxide 29
BUN 24 H
Creatinine 0.8
Glucose 106 H
Calcium 9.2
Vital Signs:
Vital Signs
Temp Pulse Resp BP Pulse Ox
97.5 F 68 18 113/58 98
01/04/25 15:00 01/04/25 15:00 01/04/25 15:00 01/04/25 15:00 01/04/25 15:00
I&O
01/03/25 01/04/25 01/05/25
06:59 06:59 06:59
Intake Total 400 / 400 240 / 240
Output Total 600 / 600
Balance 400 / 400 -360 / -360
Physical Exam
-
General: Well Developed and No Apparent Distress
HEENT: Normocephalic, Atraumatic and Moist Mucous Membranes
Respiratory: Clear to Auscultation
Cardiac: Regular Rhythm and S1/S2; Negative Murmur, Rub or Gallop
GI: Soft, Nontender, Nondistended and Normal Bowel Sounds; Negative Organomegaly
Rectal: Deferred by Provider
Musculoskeletal: No Clubbing, No Cyanosis and No Edema
Skin: Negative Rash
Neuro: Nonfocal/Grossly Intact
[2025-01-04] MEDS: CRESTOR 20 MG PO (17:41)
[2025-01-04] MEDS: ELIQUIS 5 MG PO (19:40)
[2025-01-04] MEDS: FLOMAX 0.8 MG PO (22:02)
[2025-01-04] MEDS: CARDIZEM CD 120 MG PO (22:03)
[2025-01-05 03:04] VITALS: BP 116/56
[2025-01-05 07:05] LABS: Hematocrit 35.8 % (39.0-52.0); Hemoglobin 11.9 g/dL (13.0-18.0); Mean Corp Hgb Conc. 33.2 g/dL (33.0-37.0); Mean Corpuscular Volume 90.2 fL (80.0-94.0); Platelet Count 197 10^3/uL (130-400); Red Cell Dist. Width 13.8 % (11.5-14.5)
[2025-01-05 07:31] LABS: Blood Urea Nitrogen 20 mg/dl (9-20); Calcium 8.8 mg/dl (8.4-10.2); Carbon Dioxide 27 mmol/L (22-30); Chloride 105 mmol/L (98-107); Estimated Creatinine Clearance 98 ml/min; Glucose 97 mg/dl (70-99); Potassium 3.9 mmol/L (3.5-5.1); Sodium 136 mmol/L (135-145); eGFR > 60.00
[2025-01-05 07:40] VITALS: BP 110/58
[2025-01-05] MEDS: ATROVENT NEBULES 0.5 MG INH (07:55)
[2025-01-05] MEDS: PULMICORT 0.5 MG INH ×2 (07:55→19:47)
--- NOTE | 2025-01-05 08:19 | W.PN.HOSP.TC ---
Today's Communication/Plan
-
Discharge today
OP follow-up with cardiology for EP study
OP follow-up with pulmonology
Outpatient MRI lumbosacral
Assessment / Plan
Assessment / Plan
pt is a 69 year old male
#Cough unclear cause--patient has had at least 3 rounds of antibiotics and oral prednisone without any improvement--chest x-ray shows no acute process--suspect either viral but less likely with normal white count and no other symptoms--versus
perhaps COPD or other lung issue exacerbation--await pulmonary--continue nebs, Pulmicort nebs, IV Decadron--would consider a CAT scan--low suspicion for PE but lung parenchyma could be evaluated--COVID and flu negative--patient denies any recent
long car trips, travel, vaccinations--will try Hycodan for cough. Overall respiratory status improved with complete resolution of bronchospasm. Continue prednisone taper with 10 mg for 2 more days after discharge
#V. tach --monomorphic--unclear cause--potassium greater than 4 and magnesium greater than 2--while examining the patient, he had what appeared to be periods of tachycardia (SVT with aberrancy versus ventricular in nature--followed by pauses with
recurrent sinus rhythm)--patient also states that he has been referred to an electrophysiology doctor by his outpatient mud engineer--I suspect he has some underlying conduction problem exacerbated by the nebulizer treatments and his primary lung
issue--apprec cardiology--echocardiogram with EF 60-65% with mild RV dilation and RV systolic function--proBNP 172, no signs of volume overload--troponin < 0.012
Nuclear stress test showed no evidence for ischemia, although with multiple episodes of ventricular tachycardia. That along with RV dysfunction on echocardiogram could be indicative of some arrhythmogenic right ventricular cardiomyopathy. Cardiac
MRI results consistent with mild scarring in the inferior lateral wall of the left ventricular base, mildly impaired global systolic LV function and global systolic RV function.
Cath 01/05 with nonobstructive CAD
1. Ostial RCA has a mildly calcified eccentric 60% stenosis which was IFR negative at 0.95. Mid and distal LAD has serial 50 to 60% calcified stenoses. -3 flow into the distal vessel.
2. There is mild diffuse atherosclerotic plaque in the left coronary artery.
3. LVEDP of 20 mmHg.
Adjust medication regimen for CAD as per cardiology
#Paroxysmal atrial fibrillation, new diagnosis
Initiated on Cardizem.
Initiated on Eliquis
#essential HTN--BP has been marginal with initiation of Cardizem. Ramipril discontinued. Stop Dyazide
#chronic right foot numbness which is intermittent and positional. Denies back pain. No other focal findings on neurologic exam. Recommended outpatient follow-up including imaging with MRI of the lumbar spine.
DVT prophylaxis--Lovenox
CODE status--full code
Anticipated Discharge: Today
Subjective/Interval History
-
Date of Service: January 05, 2025
Seen and examined at the bedside. No acute events recorded overnight. PVCs on telemetry though no VT. AFVSS
Persistent cough slightly improved with since admission. Had LHC yesterday with nonobstructive CAD.
Denies any new complaints this morning. Labs are stable
Objective Data
-
Labs:
Laboratory Results
01/05/25
06:26
WBC 10.1
Hgb 11.9 L
Hct 35.8 L
Plt Count 197
Sodium 136
Potassium 3.9
Chloride 105
Carbon Dioxide 27
BUN 20
Creatinine 0.8
Glucose 97
Calcium 8.8
Vital Signs:
Vital Signs
Temp Pulse Resp BP Pulse Ox
97.8 F 62 16 110/58 99
01/05/25 07:40 01/05/25 07:58 01/05/25 07:58 01/05/25 07:40 01/05/25 07:58
I&O
01/04/25 01/05/25 01/06/25
06:59 06:59 06:59
Intake Total 240 / 240 1200 / 1200
Output Total 600 / 600
Balance -360 / -360 1200 / 1200
Review of Systems
-
History Source: Patient
All other systems: Reviewed and negative
Physical Exam
-
General: Well Developed, Well Nourished and No Apparent Distress
HEENT: Normocephalic, Atraumatic and Moist Mucous Membranes
Respiratory: Clear to Auscultation and Non Labored Respirations; Negative Accessory Resp Muscle Use
Cardiac: Regular Rhythm and S1/S2; Negative Murmur, Rub or Gallop
GI: Soft, Nontender, Nondistended and Normal Bowel Sounds
Musculoskeletal: No Clubbing, No Cyanosis and No Edema
Skin: Warm and Dry; Negative Rash
Neuro: AO x 3, Nonfocal/Grossly Intact and Central Nerve's Intact
Psych: Calm
Data Reviewed
-
Labs: Labs Reviewed by me and Discussed with Patient
[2025-01-05] MEDS: DELTASONE 10 MG PO (09:01)
[2025-01-05] MEDS: MUCINEX 600 MG PO ×2 (09:01→20:27)
[2025-01-05] MEDS: ELIQUIS 5 MG PO ×2 (09:01→20:27)
[2025-01-05] MEDS: MAGNESIUM OXIDE 400 MG PO (09:01)
[2025-01-05] MEDS: KCL 40 MEQ PO (09:02)
[2025-01-05] MEDS: MIRALAX 17 GRAMS PO (10:14)
--- NOTE | 2025-01-05 10:31 | W.PN.CARDCBS ---
Addendum entered and electronically signed by Chavez Saavedra MD 01/05/25 16:25:
I saw and examined the patient.
The C++ Professor's note was reviewed and I agree with the note.
Comment:
GEN: No distress, awake, Ox3
HEENT: supple, anicteric, mmm
LUNGS: CTA, no wheezes/rales
CV: Reg, S1/S2, 1/6 syst LSB, no gallop
ABD: soft, BS+, NT/ND
EXT: No edema
NEURO: Gross non-focal
SKIN: No rash
PLan:
Still having frequent runs of nonsustained ventricular tachycardia. Will increase diltiazem to 120 mg twice daily and follow VT burden.
[employer] monitor in place.
Cath results reviewed with patient and partner. He does have moderate nonobstructive coronary artery disease.
Continue Eliquis.
If VT burden worsens will consider adding amiodarone.
Original Note:
Today's Communication / Plan
-
Increase diltiazem to 120 mg twice a day
Discharge home on rhythm star/live front desk monitor
Replete potassium
Outpatient cardiology/electrophysiology follow-up has been arranged
Impression / Plan
-
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
Impression:
Presented 12/30/2024 for persistent cough, shortness of breath with wheezing
Shortness of breath
Diffuse wheezing
PVCs, nonsustained VT in emergency department
Elevated D-dimer, CT of chest negative for PE
History of PVCs
Obstructive sleep apnea
Hypertension
Echo 12/30/2024: EF 60 to 65%. Normal regional wall motion. Mild RV dilation with mild RV systolic dysfunction. Mild aortic valve dilation SVO 3.8 cm. No significant valvular disease.
Cardiac catheterization 01/04/2025: Left main: Patent. LAD: Mild diffuse atherosclerotic plaque. Left circumflex. Mild diffuse atherosclerotic plaque. OM 2 proximal 20% stenosis. RCA ostial 60% stenosis with IFR negative at 0.95. Mid to distal
RCA with 50 to 60% calcified stenosis. -3 flow in distal vessel.
Plan:
- Presented 12/30/2024 for persistent cough, shortness of breath with wheezing concerning for upper respiratory infection type symptoms. pulm following
- CTA negative for PE or significant abnormalities
- noted to have runs of NSVT, monomorphic. patient reports history of palpitations in past particularly if angry or upset. left bundle morphology, positive lead I inferiorly directed axis with transition at V3 which may represent RVOT (additionally,
transition is earlier than sinus and could therefore represent LVOT). he did have work up in past and was placed on BB however patient did not tolerate.
- Echo showed preserved EF with mild RV systolic dysfunction
- Lexiscan nuclear stress test 01/[address] segment changes at peak exercise, essentially normal myocardial perfusion imaging with no evidence of ischemia but multiple long runs of NSVT up to 24 beats in length
- Cardiac MRI with evidence of anterolateral scar. reviewed with EP 01/03.
-Cardiac cath shows moderate nonobstructive coronary artery disease mainly in RCA distribution with IFR negative lesions and -3 flow. Continue aggressive medical management for CAD started 01/02 due to new PAF noted on tele
-also found to have PAF during admission. Eliquis has been resumed after cardiac catheterization
-continues to have runs of NSVT longest 17 beats per review of tele. Increase Cardizem cd 120mg BID. Pending response could consider initiation of amiodarone
- K+ 3.9. Will replete. Keep K greater than 4, mag greater than 2
- If continues to have NSVT may need to consider EP study pending response to diltiazem
- Rhythm starmonitor has been placed for home monitoring. This is a real-time monitor
- they would like to transfer their care to [facility] upon DC. Outpatient cardiology follow-up has been arranged with electrophysiology
History of Present Illness 12/31/2024:
Patient is a pleasant 69-year-old male with a past medical history significant for hypertension, sleep apnea who presents to [facility] due to shortness of breath, cough, wheezing. Cardiology consulted due to sinus bradycardia and PVCs.
In discussion with patient and his spouse, patient is been experiencing increasing shortness of breath over the past several weeks. Patient and spouse have been on a cruise 6-8 weeks ago and following this, patient had an upper respiratory
infection but was unclear of what type of infection this was. Since then, he has experienced continued shortness of breath, cough, wheezing with mild improvement with neb treatments. While in emergency department, patient had evidence of PVCs and
NSVT on monitor and storage bin tender. In discussion with patient and spouse, patient did not experience these PVCs palpitations or NSVT. However, in further discussion with spouse, patient has been experiencing more shortness of breath and palpitations which
he does not readily admit. Patient is active walking and doing physical activity but does not exercise due to abdominal hernia. Patient follows with cardiology and electrophysiology in [place] and was reported by cardiology to have upcoming
stress test this April but no other testing recently. Additionally, he had seen electrophysiology due to what sounds PVCs however patient was told that he 'was on the cusp' for needing treatment however unclear what this could entail. Patient
is a non-smoker, rare alcohol, no illicits. No significant pertinent family history. In discussion with patient today, he does report some mild improvement with shortness of breath following neb treatments. Again, in evaluation, he denies any
palpitations associated with PVCs or ectopy. Additionally, patient has not experienced near-syncope syncope or focal weakness.
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
Subjective
Date of Service: January 05, 2025
Patient seen and examined. Patient resting comfortably in chair. Overall reports he feels well. Occasionally will feel dizzy/lightheaded but more with positional change. Still feels some occasional palpitations. Denies chest pain or shortness
of breath
Objective
Labs:
01/05/25 06:26
01/05/25 06:26
Labs
Hgb 11.9 g/dL (13.0-18.0) L 01/05/25 06:26
Hct 35.8 % (39.0-52.0) L 01/05/25 06:26
Plt Count 197 10^3/uL (130-400) 01/05/25 06:26
Sodium 136 mmol/L (135-145) 01/05/25 06:26
Potassium 3.9 mmol/L (3.5-5.1) 01/05/25 06:26
BUN 20 mg/dl (9-20) 01/05/25 06:26
Creatinine 0.8 mg/dL (0.7-1.3) 01/05/25 06:26
Glucose 97 mg/dl (70-99) 01/05/25 06:26
Vital Signs and I&O:
Vital Signs
Temp Pulse Resp BP Pulse Ox
97.8 F 62 16 110/58 99
01/05/25 07:40 01/05/25 07:58 01/05/25 07:58 01/05/25 07:40 01/05/25 07:58
Vital Signs
Temp Pulse Resp BP Pulse Ox
97.8 F 62 16 110/58 99
01/05/25 07:40 01/05/25 07:58 01/05/25 07:58 01/05/25 07:40 01/05/25 07:58
Intake & Output
01/03/25 01/04/25 01/05/25 01/06/25
06:59 06:59 06:59 06:59
Intake Total 400 / 400 240 / 240 1200 / 1200
Output Total 600 / 600
Balance 400 / 400 -360 / -360 1200 / 1200
Physical Exam
Physical Exam
GEN: No distress, awake, Ox3, sitting in chair
HEENT: supple, anicteric, mmm
LUNGS: CTA, no wheezes/rales
CV: Reg, occasional ectopy/tachycardia, S1/S2, no murmur
ABD: soft, BS+, NT/ND
EXT: No edema, clubbing or cyanosis
NEURO: Gross non-focal
SKIN: No rash, warm, dry, pink
[2025-01-05 11:00] VITALS: BP 116/58
[2025-01-05 11:17] LABS: Magnesium 2.1 mg/dl (1.6-2.3)
[2025-01-05] MEDS: CARDIZEM CD 120 MG PO ×2 (11:45→20:28)
--- NOTE | 2025-01-05 13:34 | W.DCSUMMARY ---
Discharge Summary
Discharge Data
Date of Admission: 12/29/24
Date of Discharge: 01/05/25
Total time spent discharging patient (in min): 34
-
Pending Results: No
Hospital Course
Discharging physician: Reilly Hilario DO
Discharge disposition: Home
Primary discharge diagnoses:
Monomorphic VT
Nonobstructive CAD
Right ventricular systolic dysfunction
New onset paroxysmal AF
Chronic cough
Chronic discharge diagnoses:
Primary hypertension
YARELI
BPH
Hospital course:
69-year-old male that presented to the ED with chronic productive cough over 4 weeks time which did not improve with antibiotics or inhalers. When in the ED patient had a run of NSVT on telemetry. Viral panel was unremarkable. Was started on
Hycodan and home lisinopril CAN inhibitor was discontinued for his chronic cough. Cardiology was consulted for workup of his ventricular tachycardia. Echocardiogram showed preserved LVEF with mild RV dilation. Cardiac MRI showed inferolateral
scarring. Underwent coronary angiography on 01/04/2025 that showed nonobstructive CAD with negative IFR. He was started on high intensity statin. Developed new onset atrial fibrillation for which he was started on DOAC and diltiazem XR twice
daily. Provided with loop recorder at time of discharge with recommendation to follow-up in office with cardiology/EP for electrophysiologic study. Was sent with short course of Hycodan for his cough as well as budesonide and as needed ipratropium
nebulizers. Was given 2 more days of prednisone 10 mg to complete taper at time of discharge.
Consultants:
Concrete Laborer: Charles Hernandez DO
Employment Supervisor: Zach Kapoor MD
Pertinent imaging findings:
CT thorax PE protocol (12/30/2024)
IMPRESSION: No evidence of pulmonary embolism. No significant acute abnormality identified in the chest, as described above.
Cardiac MRI (01/02/2025)
IMPRESSION:
1. Mild scarring in the inferolateral wall of the left ventricular base.
2. Global systolic LV function: Mildly impaired.
3. Global systolic RV function: Mildly impaired.
4. Valvular disease: Trace mitral regurgitation.
5. Mild hepatosplenomegaly.
Transthoracic echocardiogram (12/30/2024)
SUMMARY
1. Normal LV size, wall thickness, and systolic function, EF 60 to 65%, no regional wall motion abnormality.
2. Mild RV dilation with mild RV systolic dysfunction.
3. Mild aortic root dilation, SOV 3.8 cm.
4. No prior study for comparison.
Sestamibi stress test (01/01/2025)
CONCLUSION: Inconclusive ECG for ischemia. Nonspecific ST segment changes at peak exercise
Essentially normal myocardial perfusion imaging, no evidence of ischemia, see comments. Multiple long runs of nonsustained VT up to 24 beats in length with cycle length 450 ms, left bundle morphology with right inferior axis. The exercise tolerance
is well below average for given age and gender. Stress Risk is high risk study (>3% ND or /year) due to ventricular tachycardia (Garcia Treadmill Score = n/a). Systolic function is normal. The ejection fraction is 56%. No previous study available
for comparison.
Procedures:
[facility] with coronary angiography (01/04/2025)
CONCLUSIONS
1. Ostial RCA has a mildly calcified eccentric 60% stenosis which was IFR negative at 0.95. Mid and distal LAD has serial 50 to 60% calcified stenoses. -3 flow into the distal vessel.
2. There is mild diffuse atherosclerotic plaque in the left coronary artery.
3. LVEDP of 20 mmHg.
Follow-up:
Family doctor within 1 week
Cardiology/EP on 01/15/2025
Employment Supervisor within 1 week
Discharge Plan
-
Patient Disposition: Home (Routine Discharge)
Discharge Diagnosis/Procedures: Monomorphic VT
New onset atrial fibrillation
Nonobstructive CAD on cardiac cath
Cough
Radiculopathy
Condition: Fair
Diet: Low Cholesterol
Activity: As tolerated
Driving Restrictions: No driving for 24 hours
Bathing Restrictions: None
Blood Work: BMP, mag, CBC 1 week after discharge
Others Tests: Follow-up with your family doctor for consideration of an MRI of your lumbosacral spine
Follow-up with cardiology for an electrophysiology study
Activity Restrictions/Additional Instructions:
Follow-up with your family doctor within 1 week of discharge from the hospital
Follow-up with cardiology in office on 01/15/2025 at 820 in the morning
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
Stand Alone Forms: DC Instructions- Cath/EP Lab
Referrals:
PRIVATE,PHYSICIAN [Family Provider, Internal Medicine] - in less than 1 week
Charles Montalvo DO [Active, Cardiology] - 01/15/25 8:20 am
Referral Note: You have a cardiology follow-up appointment at the [place] office. Please call with questions
Additional Discharge Medication Instructions: Use budesonide nebulizer twice daily
Use ipratropium nebulizer 4 times daily as needed
Use Hycodan syrup every 4 hours as needed for the next 5 days for cough
Use prednisone 10 mg daily for 2 more days
Start rosuvastatin 20 mg nightly
Stop taking ramipril, triamterene�hydrochlorothiazide until you see your family doctor. You should not be resumed on ramipril as this type of medication can lead to chronic coughing
Start diltiazem XR 120 mg twice daily
Prescriptions:
New
ipratropium bromide 0.02 % Solution
0.5 mg inhalation R QID PRN (Reason: wheezing) 30 Days Qty: 62.5 0RF
rosuvastatin 20 mg Tablet
20 mg PO QPM 30 Days Qty: 30 0RF
prednisone 10 mg Tablet
10 mg PO DAILY 2 Days Qty: 2 0RF
Eliquis 5 mg Tablet
5 mg PO BID 30 Days Qty: 60 0RF
hydrocodone-homatropine [Hycodan] 5-1.5 mg/5 mL (5 mL) Solution
10 ml PO Q4HPRN PRN (Reason: cough) 7 Days Qty: 200 0RF
guaifenesin 600 mg Tablet Extended Release 12hr
600 mg PO Q12 7 Days Qty: 14 0RF
budesonide 0.5 mg/2 mL Suspension For Nebulization
0.5 mg inhalation R BID 30 Days Qty: 120 0RF
(DME) nebulizers Misc
See Rx Instructions .Route Qty: 1 0RF
Rx Instructions:
As directed
(DME) nebulizer accessories Kit
See Rx Instructions .Route Qty: 1 0RF
Rx Instructions:
As directed
diltiazem HCl [Cardizem CD] 120 mg capsule,extended release 24hr
120 mg PO Q12 30 Days Qty: 60 0RF
Continued
zinc sulfate 50 mg zinc (220 mg) Tablet
50 mg PO DAILY
milk thistle 150 mg Capsule
150 mg PO BID
ascorbic acid (vitamin C) [Vitamin C] 500 mg Tablet
500 mg PO DAILY
tamsulosin [Flomax] 0.4 mg Capsule
0.8 mg PO HS
cholecalciferol (vitamin D3) [Vitamin D3] 25 mcg (1,000 unit) Tablet
25 mcg PO DAILY
omega 7-[id number]-fish oil [Fish Oil] 1,000 (120-180) mg Capsule
1 cap PO DAILY
magnesium oxide 400 mg magnesium Tablet
400 mg PO DAILY
Discontinued
triamterene-hydrochlorothiazid 37.5-25 mg Tablet
1 tab PO DAILY
ramipril 10 mg Capsule
10 mg PO DAILY
amoxicillin-pot clavulanate [Augmentin] 875-125 mg Tablet
1 tab PO BID
Rx Instructions:
FOR 7 DAYS STARTING 12/27/24
Discharge Orders:
Discharge Patient (As Directed); Ordered 01/05/25
Ordered By: Reilly Hilario
Discharge Date and Time
Print Language: MOLDOVAN
[2025-01-05 15:00] VITALS: BP 152/65
[2025-01-05] MEDS: CRESTOR 20 MG PO (17:17)
[2025-01-05] MEDS: SENOKOT-S 1 TABLET PO (17:19)
[2025-01-05 19:40] VITALS: BP 108/62
[2025-01-05] MEDS: FLOMAX 0.8 MG PO (21:06)
[2025-01-05 22:34] VITALS: BP 113/56
[2025-01-06 03:00] VITALS: BP 114/60
--- NOTE | 2025-01-06 03:00 | PTCARENOTE ---
Pt had 2 brief episodes of vtach on tele monitor. Patient was asymptomatic.
[2025-01-06 07:15] VITALS: BP 111/55
[2025-01-06] MEDS: PULMICORT INH ×2 (07:41→19:53)
[2025-01-06 07:52] LABS: Hematocrit 36.9 % (39.0-52.0); Hemoglobin 12.6 g/dL (13.0-18.0); Mean Corp Hgb Conc. 34.1 g/dL (33.0-37.0); Mean Corpuscular Volume 91.6 fL (80.0-94.0); Nucleated Red Blood Cells % 0 % (-); Platelet Count 186 10^3/uL (130-400); Red Cell Dist. Width 13.8 % (11.5-14.5)
[2025-01-06 08:00] VITALS: BP 111/55
[2025-01-06 08:22] LABS: Blood Urea Nitrogen 18 mg/dl (9-20); Calcium 9.1 mg/dl (8.4-10.2); Carbon Dioxide 27 mmol/L (22-30); Chloride 106 mmol/L (98-107); Estimated Creatinine Clearance 98 ml/min; Glucose 92 mg/dl (70-99); Magnesium 2.0 mg/dl (1.6-2.3); Potassium 4.1 mmol/L (3.5-5.1); Sodium 137 mmol/L (135-145); eGFR > 60.00
--- NOTE | 2025-01-06 08:25 | W.PN.HOSP.TC ---
Today's Communication/Plan
-
Continue telemetry
Continue diltiazem twice daily
Consider amiodarone
Electrolyte goals: K >4, mag >2
Bisacodyl suppository x1
Assessment / Plan
Assessment / Plan
pt is a 69 year old male
#V. tach --monomorphic--unclear cause--potassium greater than 4 and magnesium greater than 2--while examining the patient, he had what appeared to be periods of tachycardia (SVT with aberrancy versus ventricular in nature--followed by pauses with
recurrent sinus rhythm)--patient also states that he has been referred to an electrophysiology doctor by his outpatient historian research assistant--I suspect he has some underlying conduction problem exacerbated by the nebulizer treatments and his primary lung
issue--apprec cardiology--echocardiogram with EF 60-65% with mild RV dilation and RV systolic function--proBNP 172, no signs of volume overload--troponin < 0.012
Nuclear stress test showed no evidence for ischemia, although with multiple episodes of ventricular tachycardia. That along with RV dysfunction on echocardiogram could be indicative of some arrhythmogenic right ventricular cardiomyopathy. Cardiac
MRI results consistent with mild scarring in the inferior lateral wall of the left ventricular base, mildly impaired global systolic LV function and global systolic RV function. Continues to have VT, up to 13 beats overnight. Continue diltiazem
twice daily, consider amiodarone and inpatient EP study. Loop recorder currently in place
#Nonobstructive CAD --[facility] with coronary angiography on 01/05 showed 60% eccentric stenosis of the ostial RCA with negative IFR of 0.95, as well as 50 to 60% stenosis of the mid and distal LAD with -3 flow. Started on high intensity statin for
medical therapy. Not currently on antiplatelet therapy, does take Eliquis for new onset AF. LDL goal <70
#Cough unclear cause--patient has had at least 3 rounds of antibiotics and oral prednisone without any improvement--chest x-ray shows no acute process--suspect either viral but less likely with normal white count and no other symptoms--versus
perhaps COPD or other lung issue exacerbation--await pulmonary--continue nebs, Pulmicort nebs, IV Decadron--would consider a CAT scan--low suspicion for PE but lung parenchyma could be evaluated--COVID and flu negative--patient denies any recent
long car trips, travel, vaccinations--will try Hycodan for cough. Overall respiratory status improved with complete resolution of bronchospasm. Continue prednisone taper with 10 mg for 2 more days. Appears to be improving as of this morning
#Paroxysmal atrial fibrillation, new diagnosis --has been started on diltiazem twice daily at 240 mg as well as Eliquis 5 mg twice daily. Continue on telemetry as above.
#essential HTN--BP has been marginal with initiation of Cardizem. Ramipril discontinued. Stop Dyazide
#chronic right foot numbness which is intermittent and positional. Denies back pain. No other focal findings on neurologic exam. Recommended outpatient follow-up including imaging with MRI of the lumbar spine.
#Constipation --has not had a bowel movement in 4 days, states MiraLAX and senna did not help. Ordered bisacodyl 10 mg suppository x 1 for now. Continue to monitor, consider mag citrate
DVT prophylaxis--Lovenox
CODE status--full code
Anticipated Discharge: 24 - 48 hours
Subjective/Interval History
-
Date of Service: January 06, 2025
Seen and examined at the bedside. No acute events reported overnight. Telemetry with VT of up to 13 beats not associated with symptoms. AFVSS this morning
Morning labs with potassium and magnesium at goals. Remainder of labs stable
Denies any new complaints symptomatically. Frustrated at length of stay
Objective Data
-
Labs:
Laboratory Results
01/06/25
07:32
WBC 7.2
Hgb 12.6 L
Hct 36.9 L
Plt Count 186
Sodium 137
Potassium 4.1
Chloride 106
Carbon Dioxide 27
BUN 18
Creatinine 0.8
Glucose 92
Calcium 9.1
Vital Signs:
Vital Signs
Temp Pulse Resp BP Pulse Ox
97.9 F 78 18 114/60 96
01/06/25 03:00 01/06/25 03:00 01/06/25 03:00 01/06/25 03:00 01/06/25 03:00
I&O
01/05/25 01/06/25 01/07/25
06:59 06:59 06:59
Intake Total 1200 / 1200 960 / 960
Balance 1200 / 1200 960 / 960
Review of Systems
-
History Source: Patient
All other systems: Reviewed and negative
Physical Exam
-
General: Well Developed, Well Nourished and No Apparent Distress
HEENT: Normocephalic, Atraumatic, Moist Mucous Membranes and Anicteric
Respiratory: Clear to Auscultation and Non Labored Respirations; Negative Accessory Resp Muscle Use
Cardiac: Regular Rhythm and S1/S2; Negative Murmur, Rub or Gallop
GI: Soft, Nontender, Nondistended and Normal Bowel Sounds
Musculoskeletal: No Clubbing, No Cyanosis and No Edema
Skin: Warm and Dry; Negative Rash
Neuro: AO x 3, Nonfocal/Grossly Intact and Central Nerve's Intact
Psych: Calm
Data Reviewed
-
Labs: Labs Reviewed by me, Discussed with Physician (Cardiology) and Discussed with Patient
[2025-01-06 09:16] VITALS: BP 111/55
[2025-01-06] MEDS: CARDIZEM CD 120 MG PO ×2 (09:28→20:40)
[2025-01-06] MEDS: MUCINEX 600 MG PO ×2 (09:29→20:41)
[2025-01-06] MEDS: MAGNESIUM OXIDE 400 MG PO (09:29)
[2025-01-06] MEDS: ELIQUIS 5 MG PO ×2 (09:29→20:41)
[2025-01-06] MEDS: DELTASONE 10 MG PO (09:29)
[2025-01-06] MEDS: DULCOLAX 10 MG RECTAL (09:38)
[2025-01-06] MEDS: AFRIN NASAL SPRAY 30 SPRAYS NASAL (09:40)
--- NOTE | 2025-01-06 09:54 | W.PN.CARDCBS ---
Today's Communication / Plan
-
Continues with runs of NSVT 8-12 beats despite increased Cardizem.
Patient reports history of palpitations in past particularly if angry or upset. left bundle morphology, positive lead I inferiorly directed axis with transition at V3 which may represent RVOT (additionally, transition is earlier
than sinus and could therefore represent LVOT). he did have work up in past and was placed on BB however patient did not tolerate.
Inpatient work up of NSVT included:
-Echo showed preserved EF with mild RV systolic dysfunction
-Lexiscan nuclear stress test 01/[address] segment changes at peak exercise, essentially normal myocardial perfusion imaging with no evidence of ischemia but multiple long runs of NSVT up to 24 beats
-Cardiac MRI with evidence of anterolateral scar. reviewed with EP 01/03.
-Cardiac cath shows moderate nonobstructive coronary artery disease mainly in RCA distribution with IFR negative lesions and TIIM-3 flow.
Will start Amiodarone 400 mg TID and review with EP regarding potential for EP study
Cont Cardizem CE 120 mg BID
Cont to replete lytes
Remains sinus, new AFib this admit
Cont Eliquis
Rhythm starmonitor has been placed for home monitoring. This is a real-time monitor
They would like to transfer their care to [facility] upon DC.
Outpatient cardiology follow-up has been arranged with electrophysiology
Impression / Plan
-
.
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 Montalvo
Impression:
Presented 12/30/2024 for persistent cough, shortness of breath with wheezing
PVCs, nonsustained VT
Elevated D-dimer, CT of chest negative for PE
History of PVCs
Obstructive sleep apnea
Hypertension
Echo 12/30/2024: EF 60 to 65%. Normal regional wall motion. Mild RV dilation with mild RV systolic dysfunction. Mild aortic valve dilation SVO 3.8 cm. No significant valvular disease.
Cardiac catheterization 01/04/2025: Left main: Patent. LAD: Mild diffuse atherosclerotic plaque. Left circumflex. Mild diffuse atherosclerotic plaque. OM 2 proximal 20% stenosis. RCA ostial 60% stenosis with IFR negative at 0.95. Mid to distal
RCA with 50 to 60% calcified stenosis. -3 flow in distal vessel.
Plan:
-Presented 12/30/2024 for persistent cough, shortness of breath with wheezing concerning for upper respiratory infection type symptoms. pulm following. CTA negative for PE or significant abnormalities
Continues with runs of NSVT 8-12 beats despite increased Cardizem.
Patient reports history of palpitations in past particularly if angry or upset. left bundle morphology, positive lead I inferiorly directed axis with transition at V3 which may represent RVOT (additionally, transition is earlier
than sinus and could therefore represent LVOT). he did have work up in past and was placed on BB however patient did not tolerate.
Inpatient work up of NSVT included:
-Echo showed preserved EF with mild RV systolic dysfunction
-Lexiscan nuclear stress test 01/[address] segment changes at peak exercise, essentially normal myocardial perfusion imaging with no evidence of ischemia but multiple long runs of NSVT up to 24 beats
-Cardiac MRI with evidence of anterolateral scar. reviewed with EP 01/03.
-Cardiac cath shows moderate nonobstructive coronary artery disease mainly in RCA distribution with IFR negative lesions and -3 flow.
Will start Amiodarone 400 mg TID and review with EP regarding potential for EP study
Cont Cardizem CE 120 mg BID
Cont to replete lytes
Remains sinus, new AFib this admit
Cont Eliquis
Rhythm starmonitor has been placed for home monitoring. This is a real-time monitor
They would like to transfer their care to [facility] upon DC.
Outpatient cardiology follow-up has been arranged with electrophysiology
Discussed with partner at bedside and nursing.
History of Present Illness 12/31/2024:
Patient is a pleasant 69-year-old male with a past medical history significant for hypertension, sleep apnea who presents to [facility] due to shortness of breath, cough, wheezing. Cardiology consulted due to sinus bradycardia and PVCs.
In discussion with patient and his spouse, patient is been experiencing increasing shortness of breath over the past several weeks. Patient and spouse have been on a cruise 6-8 weeks ago and following this, patient had an upper respiratory
infection but was unclear of what type of infection this was. Since then, he has experienced continued shortness of breath, cough, wheezing with mild improvement with neb treatments. While in emergency department, patient had evidence of PVCs and
NSVT on hob grinder. In discussion with patient and spouse, patient did not experience these PVCs palpitations or NSVT. However, in further discussion with spouse, patient has been experiencing more shortness of breath and palpitations which
he does not readily admit. Patient is active walking and doing physical activity but does not exercise due to abdominal hernia. Patient follows with cardiology and electrophysiology in [place] and was reported by cardiology to have upcoming
stress test this April but no other testing recently. Additionally, he had seen electrophysiology due to what sounds PVCs however patient was told that he 'was on the cusp' for needing treatment however unclear what this could entail. Patient
is a non-smoker, rare alcohol, no illicits. No significant pertinent family history. In discussion with patient today, he does report some mild improvement with shortness of breath following neb treatments. Again, in evaluation, he denies any
palpitations associated with PVCs or ectopy. Additionally, patient has not experienced near-syncope syncope or focal weakness.
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
Subjective
Date of Service: January 06, 2025
Pt seen and examined. No complaints. No chest pain or shortness of breath.
Objective
Labs:
01/06/25 07:32
01/06/25 07:32
Labs
Hgb 12.6 g/dL (13.0-18.0) L 01/06/25 07:32
Hct 36.9 % (39.0-52.0) L 01/06/25 07:32
Plt Count 186 10^3/uL (130-400) 01/06/25 07:32
Sodium 137 mmol/L (135-145) 01/06/25 07:32
Potassium 4.1 mmol/L (3.5-5.1) 01/06/25 07:32
BUN 18 mg/dl (9-20) 01/06/25 07:32
Creatinine 0.8 mg/dL (0.7-1.3) 01/06/25 07:32
Glucose 92 mg/dl (70-99) 01/06/25 07:32
Vital Signs and I&O:
Vital Signs
Temp Pulse Resp BP Pulse Ox
97.8 F 69 18 111/55 95
01/06/25 08:00 01/06/25 09:28 01/06/25 08:00 01/06/25 08:00 01/06/25 08:00
Vital Signs
Temp Pulse Resp BP Pulse Ox
97.8 F 69 18 111/55 95
01/06/25 08:00 01/06/25 09:28 01/06/25 08:00 01/06/25 08:00 01/06/25 08:00
Intake & Output
01/04/25 01/05/25 01/06/25 01/07/25
06:59 06:59 06:59 06:59
Intake Total 240 / 240 1200 / 1200 960 / 960
Output Total 600 / 600
Balance -360 / -360 1200 / 1200 960 / 960
Physical Exam
Physical Exam
General: No acute distress, AAOX3
Neck: Negative JVD
Heart: Regular, Negative S3 positive S1/S2, Negative S4, No murmur
Lungs: CTA b/l, negative wheezes/rales/rhonchi
Abd: Positive BS, NT/ND, neg rebound/rigidity/guarding
Ext: Negative cyanosis/clubbing/edema
Neuro: nonfocal
[2025-01-06] MEDS: PACERONE 400 MG PO ×2 (16:04→21:46)
[2025-01-06] MEDS: CRESTOR 20 MG PO (17:26)
[2025-01-06 19:12] VITALS: BP 121/55
[2025-01-06] MEDS: MIRALAX 17 GRAMS PO (21:45)
[2025-01-06] MEDS: SENOKOT-S 1 TABLET PO (21:46)
[2025-01-06] MEDS: FLOMAX 0.8 MG PO (21:47)
[2025-01-06 23:00] VITALS: BP 109/61
[2025-01-07 03:00] VITALS: BP 128/52
[2025-01-07 07:38] VITALS: BP 106/55
[2025-01-07] MEDS: PULMICORT INH ×2 (07:38→19:22)
[2025-01-07 08:13] LABS: Hematocrit 37.1 % (39.0-52.0); Hemoglobin 12.2 g/dL (13.0-18.0); Mean Corp Hgb Conc. 32.9 g/dL (33.0-37.0); Mean Corpuscular Volume 94.2 fL (80.0-94.0); Nucleated Red Blood Cells % 0 % (-); Platelet Count 190 10^3/uL (130-400); Red Cell Dist. Width 13.5 % (11.5-14.5)
[2025-01-07] MEDS: MUCINEX 600 MG PO ×2 (08:46→19:44)
[2025-01-07] MEDS: MAGNESIUM OXIDE 400 MG PO (08:46)
[2025-01-07] MEDS: ELIQUIS 5 MG PO ×2 (08:46→19:44)
[2025-01-07] MEDS: DELTASONE 10 MG PO (08:46)
[2025-01-07] MEDS: SENOKOT-S 1 TABLET PO ×2 (08:49→19:48)
[2025-01-07] MEDS: MIRALAX 17 GRAMS PO (08:49)
[2025-01-07 08:55] LABS: Blood Urea Nitrogen 15 mg/dl (9-20); Calcium 8.8 mg/dl (8.4-10.2); Carbon Dioxide 28 mmol/L (22-30); Chloride 107 mmol/L (98-107); Estimated Creatinine Clearance 98 ml/min; Glucose 96 mg/dl (70-99); Magnesium 2.1 mg/dl (1.6-2.3); Sodium 139 mmol/L (135-145); eGFR > 60.00
[2025-01-07] MEDS: PACERONE PO ×2 (08:58→22:05)
[2025-01-07 09:07] LABS: Potassium 4.2 mmol/L (3.5-5.1)
--- NOTE | 2025-01-07 09:34 | W.PN.CARDCBS ---
Addendum entered and electronically signed by Charles Montalvo DO 01/07/25 13:41:
I saw and examined the patient.
The Timing Machine Operator's note was reviewed and I agree with the note.
Comment:
Patient initiated on amiodarone on 01/06/2025. Significant improvement in ventricular ectopy noted by telemetry monitoring. Patient overall feels well. Denies any chest pain, shortness of breath, palpitations, near-syncope, syncope or weakness.
EKG today demonstrates sinus bradycardia 51 bpm with QT/QTc 452/416 ms (prior EKG 01/02 with QT/QTc 422/388 ms).
GENERAL: no acute distress
EYE: sclera anicteric
NECK: Supple, no JVD, no carotid bruit appreciated
ENT: normal nose, moist mucosal membranes
CARDIAC: Regular rate and rhythm, +S1/S2, no murmur, rubs, or gallops
CHEST/PULMONARY: Normal effort, clear breath sounds
ABDOMEN: Soft, without focal tenderness or distention
NEUROLOGICAL: Alert and oriented x3
SKIN: Warm and dry, no rash
PSYCH: Normal and appropriate interaction.
Telemetry shows sinus rhythm, sinus bradycardia; 1: 1 conduction without significant pauses; improvement in ventricular ectopy
A/P as below
Continue amiodarone while hospitalized with plan repeat EKG tomorrow morning. If stable, will plan for discharge on 200 mg twice daily with follow-up in the office as scheduled
Discontinue diltiazem
Continue oral anticoagulation (Eliquis 5 mg twice daily) for paroxysmal symptomatic atrial fibrillation; this is likely secondary to his recent upper respiratory infection however patient's [id number] scoring is greater than 2 and therefore
anticoagulation is indicated
Discussed at length with patient and spouse regarding monitoring symptom management. As it stands, patient with NSVT, PVCs which appear to be outflow tract in nature. Patient's LVEF is normal by echocardiography and reduced by CMR however
ventricular ectopy likely contributing to inaccurate reading on LVEF. Patient with small scarring in the LV which does not correlate with his ectopy. No other structural abnormalities noted. Heart catheterization demonstrated CAD without
significant obstruction likely noncontributory. Therefore, patient's STD risk is low as patient has not experienced near-syncope syncope associated with ventricular ectopy. Additionally, all PVCs/NSVT have remained nonsustained and have not lasted
upwards of 30 seconds or longer. Will have patient wear a MCT monitor when going home for closer surveillance as well.
Continue to monitor on telemetry while inpatient
Original Note:
Today's Communication / Plan
-
Continue amiodarone 400 mg 3 times daily dosing during hospitalization, reduced to 200 mg twice daily upon discharge
Check EKG today for monitoring of QTc with initiation of amiodarone
Discontinue diltiazem
Keep K greater than 4, mag greater than 2
Continue Eliquis to reduce risk of thromboembolic event given new diagnosis of A-fib this admission
Outpatient cardiology follow-up has been arranged
Impression / Plan
-
.
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
Impression:
Presented 12/30/2024 for persistent cough, shortness of breath with wheezing
PVCs, nonsustained VT
Elevated D-dimer, CT of chest negative for PE
History of PVCs
Obstructive sleep apnea
Hypertension
Echo 12/30/2024: EF 60 to 65%. Normal regional wall motion. Mild RV dilation with mild RV systolic dysfunction. Mild aortic valve dilation SVO 3.8 cm. No significant valvular disease.
Cardiac catheterization 01/04/2025: Left main: Patent. LAD: Mild diffuse atherosclerotic plaque. Left circumflex. Mild diffuse atherosclerotic plaque. OM 2 proximal 20% stenosis. RCA ostial 60% stenosis with IFR negative at 0.95. Mid to distal
RCA with 50 to 60% calcified stenosis. -3 flow in distal vessel.
Plan:
Presented 12/30/2024 for persistent cough, shortness of breath with wheezing concerning for upper respiratory infection type symptoms. pulm following. CTA negative for PE or significant abnormalities
-CTA negative for PE or significant abnormalities
Patient reports history of palpitations in past particularly if angry or upset. left bundle morphology, positive lead I inferiorly directed axis with transition at V3 which may represent RVOT (additionally, transition is earlier
than sinus and could therefore represent LVOT). he did have work up in past and was placed on BB however patient did not tolerate.
Inpatient work up of NSVT included:
-Echo showed preserved EF with mild RV systolic dysfunction
-Lexiscan nuclear stress test 01/01/[address] segment changes at peak exercise, essentially normal myocardial perfusion imaging with no evidence of ischemia but multiple long runs of NSVT up to 24 beats
-Cardiac MRI with evidence of anterolateral scar. reviewed with EP 01/03. NSVT origin does not correlate with area of scar
-Cardiac cath 01/04/2025 shows moderate nonobstructive coronary artery disease mainly in RCA distribution with IFR negative lesions and -3 flow.
-Continued with runs of NSVT 8-12 beats despite increased Cardizem to 120 mg BID with underlying bradycardia with heart rates in the 40's-60's bpm.
-NSVT appears to be relatively asymptomatic with complaints of only occasional dizziness usually with standing
-New to Amiodarone 400 mg TID started 01/06/2025 in afternoon. After 2 doses ectopy has significantly improved now with isolated 2-3 beat episodes of NSVT. Continue 3 times daily dosing during hospital and discharged home on 200 mg twice daily
-Will discontinue Cardizem given ongoing bradycardia and improvement of arrhythmia with amiodarone
-Check EKG for monitoring of QTc with initiation of amiodarone
-Keep K+ greater than 4, mag greater than 2
- Plan discussed in great detail with electrophysiology, Dr. Montalvo, there is no indication for ablation during admission as patient is asymptomatic with unremarkable cardiac workup including echo, stress test, cardiac MRI and cardiac
catheterization. This will be discussed and arranged at outpatient cardiology follow-up
Remains sinus, new AFib this admit
Cont Eliquis
2 week Rhythm star monitor has been placed (01/04) for home monitoring. This is a real-time monitor and will be followed upon discharge
They would like to transfer their care to [facility] upon DC.
Outpatient cardiology follow-up has been arranged with electrophysiology on 01/15/2025
Discussed with partner at bedside and nursing. I spent
History of Present Illness 12/31/2024:
Patient is a pleasant 69-year-old male with a past medical history significant for hypertension, sleep apnea who presents to [facility] due to shortness of breath, cough, wheezing. Cardiology consulted due to sinus bradycardia and PVCs.
In discussion with patient and his spouse, patient is been experiencing increasing shortness of breath over the past several weeks. Patient and spouse have been on a cruise 6-8 weeks ago and following this, patient had an upper respiratory
infection but was unclear of what type of infection this was. Since then, he has experienced continued shortness of breath, cough, wheezing with mild improvement with neb treatments. While in emergency department, patient had evidence of PVCs and
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 In discussion with patient and spouse, patient did not experience these PVCs palpitations or NSVT. However, in further discussion with spouse, patient has been experiencing more shortness of breath and palpitations which
he does not readily admit. Patient is active walking and doing physical activity but does not exercise due to abdominal hernia. Patient follows with cardiology and electrophysiology in [place] and was reported by cardiology to have upcoming
stress test this April but no other testing recently. Additionally, he had seen electrophysiology due to what sounds PVCs however patient was told that he 'was on the cusp' for needing treatment however unclear what this could entail. Patient
is a non-smoker, rare alcohol, no illicits. No significant pertinent family history. In discussion with patient today, he does report some mild improvement with shortness of breath following neb treatments. Again, in evaluation, he denies any
palpitations associated with PVCs or ectopy. Additionally, patient has not experienced near-syncope syncope or focal weakness.
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
Subjective
Date of Service: January 07, 2025
Patient seen and examined with significant other at bedside. Patient reports overall he is feeling well. He has been able to ambulate around floors without any concerning cardiac symptoms. He denies palpitations, chest pain, shortness of breath,
dizziness, lightheadedness, syncope or near syncope. Constipation biggest concern
Reporting he is eager to go home
Objective
Labs:
01/07/25 07:16
01/07/25 07:16
Labs
Hgb 12.2 g/dL (13.0-18.0) L 01/07/25 07:16
Hct 37.1 % (39.0-52.0) L 01/07/25 07:16
Plt Count 190 10^3/uL (130-400) 01/07/25 07:16
Sodium 139 mmol/L (135-145) 01/07/25 07:16
Potassium 4.2 mmol/L (3.5-5.1) 01/07/25 07:16
BUN 15 mg/dl (9-20) 01/07/25 07:16
Creatinine 0.8 mg/dL (0.7-1.3) 01/07/25 07:16
Glucose 96 mg/dl (70-99) 01/07/25 07:16
Vital Signs and I&O:
Vital Signs
Temp Pulse Resp BP Pulse Ox
97.9 F 48 17 106/5 97
01/07/25 07:38 01/07/25 08:58 01/07/25 07:38 01/07/25 08:58 01/07/25 07:38
Vital Signs
Temp Pulse Resp BP Pulse Ox
97.9 F 48 17 106/5 97
01/07/25 07:38 01/07/25 08:58 01/07/25 07:38 01/07/25 08:58 01/07/25 07:38
Intake & Output
01/05/25 01/06/25 01/07/25 01/08/25
06:59 06:59 06:59 06:59
Intake Total 1200 / 1200 960 / 960
Balance 1200 / 1200 960 / 960
Physical Exam
Physical Exam
GEN: No distress, awake, Ox3, sitting in chair
HEENT: supple, anicteric, mmm
LUNGS: CTA, no wheezes/rales
CV: Reg, occasional ectopy/tachycardia, S1/S2, no murmur
ABD: soft, BS+, NT/ND
EXT: No edema, clubbing or cyanosis
NEURO: Gross non-focal
SKIN: No rash, warm, dry, pink
[2025-01-07] MEDS: PACERONE 400 MG PO ×2 (09:45→17:19)
[2025-01-07 11:51] VITALS: BP 137/55
--- NOTE | 2025-01-07 12:58 | CM ---
Cardiac medication adjustments. Discharge POC: Anticipate home with no needs.
[2025-01-07 15:36] VITALS: BP 142/59
--- NOTE | 2025-01-07 15:45 | W.PN.HOSP.TC ---
Today's Communication/Plan
-
Off Cardizem.
Initiated on amiodarone.
Monitor for recurrent V. tach.
Continue Eliquis
Stop prednisone
Assessment / Plan
Assessment / Plan
pt is a 69 year old male
#V. tach --monomorphic--unclear cause--potassium greater than 4 and magnesium greater than 2--while examining the patient, he had what appeared to be periods of tachycardia (SVT with aberrancy versus ventricular in nature--followed by pauses with
recurrent sinus rhythm)--patient also states that he has been referred to an electrophysiology doctor by his outpatient underpresser hand--I suspect he has some underlying conduction problem exacerbated by the nebulizer treatments and his primary lung
issue--apprec cardiology--echocardiogram with EF 60-65% with mild RV dilation and RV systolic function--proBNP 172, no signs of volume overload--troponin < 0.012
Nuclear stress test showed no evidence for ischemia, although with multiple episodes of ventricular tachycardia. That along with RV dysfunction on echocardiogram could be indicative of some arrhythmogenic right ventricular cardiomyopathy. Cardiac
MRI results consistent with mild scarring in the inferior lateral wall of the left ventricular base, mildly impaired global systolic LV function and global systolic RV function. Continues to have VT, up to 13 beats overnight. Initiated on
amiodarone 01/07. Cardizem discontinued.
#Nonobstructive CAD --[facility] with coronary angiography on 01/05 showed 60% eccentric stenosis of the ostial RCA with negative IFR of 0.95, as well as 50 to 60% stenosis of the mid and distal LAD with -3 flow. Started on high intensity statin for
medical therapy. Not currently on antiplatelet therapy, does take Eliquis for new onset AF. LDL goal <70
#Cough unclear cause--patient has had at least 3 rounds of antibiotics and oral prednisone without any improvement--chest x-ray shows no acute process--suspect either viral but less likely with normal white count and no other symptoms--versus
perhaps COPD or other lung issue exacerbation--await pulmonary--continue nebs, Pulmicort nebs, IV Decadron--would consider a CAT scan--low suspicion for PE but lung parenchyma could be evaluated--COVID and flu negative--patient denies any recent
long car trips, travel, vaccinations--will try Hycodan for cough. Overall respiratory status improved with complete resolution of bronchospasm. Discontinue prednisone
#Paroxysmal atrial fibrillation, new diagnosis --has been started on diltiazem twice daily at 240 mg as well as Eliquis 5 mg twice daily. Continue on telemetry as above.
#essential HTN--BP has been marginal with initiation of Cardizem. Ramipril discontinued. Stop Dyazide
#chronic right foot numbness which is intermittent and positional. Denies back pain. No other focal findings on neurologic exam. Recommended outpatient follow-up including imaging with MRI of the lumbar spine.
#Constipation --has not had a bowel movement in 4 days, states MiraLAX and senna did not help. Ordered bisacodyl 10 mg suppository x 1 for now. Continue to monitor, consider mag citrate
DVT prophylaxis--Lovenox
CODE status--full code
Anticipated Discharge: Within 24 hours
Subjective/Interval History
-
Date of Service: January 07, 2025
Objective Data
-
Labs:
Laboratory Results
01/07/25
07:16
WBC 7.9
Hgb 12.2 L
Hct 37.1 L
Plt Count 190
Sodium 139
Potassium 4.2
Chloride 107
Carbon Dioxide 28
BUN 15
Creatinine 0.8
Glucose 96
Calcium 8.8
Vital Signs:
Vital Signs
Temp Pulse Resp BP Pulse Ox
97.4 F 62 17 142/59 99
01/07/25 15:36 01/07/25 15:36 01/07/25 15:36 01/07/25 15:36 01/07/25 15:36
I&O
10/01/07/25 01/08/25
06:59 06:59 06:59
Intake Total 960 / 960
Balance 960 / 960
Physical Exam
-
General: Well Developed, Well Nourished and No Apparent Distress
HEENT: Normocephalic, Atraumatic, Moist Mucous Membranes and Anicteric
Respiratory: Clear to Auscultation and Non Labored Respirations; Negative Accessory Resp Muscle Use
Cardiac: Regular Rhythm and S1/S2; Negative Murmur, Rub or Gallop
GI: Soft, Nontender, Nondistended and Normal Bowel Sounds
Musculoskeletal: No Clubbing, No Cyanosis and No Edema
Skin: Warm and Dry; Negative Rash
Neuro: AO x 3, Nonfocal/Grossly Intact and Central Nerve's Intact
Psych: Calm
[2025-01-07] MEDS: CRESTOR 20 MG PO (17:20)
[2025-01-07 19:00] VITALS: BP 139/63
[2025-01-07 21:53] VITALS: BP 126/65
[2025-01-07] MEDS: FLOMAX 0.8 MG PO (22:03)
[2025-01-08 03:00] VITALS: BP 112/63
[2025-01-08] MEDS: PULMICORT INH (07:21)
[2025-01-08 07:32] VITALS: BP 113/56
[2025-01-08] MEDS: ELIQUIS 5 MG PO (08:32)
[2025-01-08] MEDS: MAGNESIUM OXIDE 400 MG PO (08:32)
[2025-01-08] MEDS: MUCINEX 600 MG PO (08:33)
[2025-01-08] MEDS: PACERONE 400 MG PO (09:58)
--- NOTE | 2025-01-08 10:37 | W.PN.CARDCBS ---
Addendum entered and electronically signed by Harsha Sow DO 01/08/25 13:37:
I saw and examined the patient.
The Fitness And Wellness Director's note was reviewed and I agree with the note.
Comment:
Cont Amiodarone 200 mg BID.
Cont RhythmStar monitor to eval for ectopy and NSVT
Outpt cardiac follow up arranged with Dr MONTALVO, eventual EP study off amiodarone
Please recall if needed
Discussed with significant other and primary service.
Original Note:
Today's Communication / Plan
-
Discharge home on amiodarone 200 mg twice a day
Patient will continue wearing real-time ambulatory monitor through 01/18/2025
Outpatient cardiology follow-up has been arranged for 01/15/2025
Stable from cardiac standpoint for discharge
Impression / Plan
-
.
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
Impression:
Presented 12/30/2024 for persistent cough, shortness of breath with wheezing
PVCs, nonsustained VT
Elevated D-dimer, CT of chest negative for PE
Bradycardia
History of PVCs
Obstructive sleep apnea
Hypertension
Echo 12/30/2024: EF 60 to 65%. Normal regional wall motion. Mild RV dilation with mild RV systolic dysfunction. Mild aortic valve dilation SVO 3.8 cm. No significant valvular disease.
Cardiac catheterization 01/04/2025: Left main: Patent. LAD: Mild diffuse atherosclerotic plaque. Left circumflex. Mild diffuse atherosclerotic plaque. OM 2 proximal 20% stenosis. RCA ostial 60% stenosis with IFR negative at 0.95. Mid to distal
RCA with 50 to 60% calcified stenosis. -3 flow in distal vessel.
Plan:
Presented 12/30/2024 for persistent cough, shortness of breath with wheezing concerning for upper respiratory infection type symptoms. pulm following. CTA negative for PE or significant abnormalities
-CTA negative for PE or significant abnormalities
Patient reports history of palpitations in past particularly if angry or upset. left bundle morphology, positive lead I inferiorly directed axis with transition at V3 which may represent RVOT (additionally, transition is earlier
than sinus and could therefore represent LVOT). he did have work up in past and was placed on BB however patient did not tolerate.
Inpatient work up of NSVT included:
-Echo showed preserved EF with mild RV systolic dysfunction
-Lexiscan nuclear stress test 01/01/[address] segment changes at peak exercise, essentially normal myocardial perfusion imaging with no evidence of ischemia but multiple long runs of NSVT up to 24 beats
-Cardiac MRI with evidence of anterolateral scar. reviewed with EP 01/03. NSVT origin does not correlate with area of scar
-Cardiac cath 01/04/2025 shows moderate nonobstructive coronary artery disease mainly in RCA distribution with IFR negative lesions and -3 flow.
-Continued with runs of NSVT 8-12 beats despite increased Cardizem to 120 mg BID with underlying bradycardia with heart rates in the 40's-60's bpm. Diltiazem discontinued on 01/07/2025 due to bradycardia.
-NSVT appears to be relatively asymptomatic with complaints of only occasional dizziness usually with standing. Now resolved
-New to Amiodarone 400 mg TID started 01/06/2025 in afternoon. After 2 doses ectopy has significantly improved now with isolated 2-3 beat episodes of NSVT. Per review of telemetry overnight very infrequent PVCs noted.
- Personally reviewed EKG from 01/08/2025 in AM. Sinus bradycardia with first-degree AV block and QTc stable at 417 ms
-Discharged home on Amiodarone 200 mg twice daily
-Per EP discussion on 01/08/2024 'Discussed at length with patient and spouse regarding monitoring symptom management. As it stands, patient with NSVT, PVCs which appear to be outflow tract in nature. Patient's LVEF is normal by echocardiography
and reduced by CMR however ventricular ectopy likely contributing to inaccurate reading on LVEF. Patient with small scarring in the LV which does not correlate with his ectopy. No other structural abnormalities noted. Heart catheterization
demonstrated CAD without significant obstruction likely noncontributory. Therefore, patient's STD risk is low as patient has not experienced near-syncope syncope associated with ventricular ectopy. Additionally, all PVCs/NSVT have remained
nonsustained and have not lasted upwards of 30 seconds or longer. Will have patient wear a MCT monitor when going home for closer surveillance as well.'
Remains sinus, new AFib this admit
Continue oral anticoagulation (Eliquis 5 mg twice daily) for paroxysmal symptomatic atrial fibrillation; this is likely secondary to his recent upper respiratory infection however patient's [id number] scoring is greater than 2 and therefore
anticoagulation is indicated
2 week Rhythm star monitor has been placed (01/04) for home monitoring. This is a real-time monitor and will be followed upon discharge
They would like to transfer their care to [facility] upon DC. Outpatient cardiology follow-up has been arranged with electrophysiology on 01/15/2025
History of Present Illness 12/31/2024:
Patient is a pleasant 69-year-old male with a past medical history significant for hypertension, sleep apnea who presents to [facility] due to shortness of breath, cough, wheezing. Cardiology consulted due to sinus bradycardia and PVCs.
In discussion with patient and his spouse, patient is been experiencing increasing shortness of breath over the past several weeks. Patient and spouse have been on a cruise 6-8 weeks ago and following this, patient had an upper respiratory
infection but was unclear of what type of infection this was. Since then, he has experienced continued shortness of breath, cough, wheezing with mild improvement with neb treatments. While in emergency department, patient had evidence of PVCs and
NSVT on site monitor. In discussion with patient and spouse, patient did not experience these PVCs palpitations or NSVT. However, in further discussion with spouse, patient has been experiencing more shortness of breath and palpitations which
he does not readily admit. Patient is active walking and doing physical activity but does not exercise due to abdominal hernia. Patient follows with cardiology and electrophysiology in [place] and was reported by cardiology to have upcoming
stress test this April but no other testing recently. Additionally, he had seen electrophysiology due to what sounds PVCs however patient was told that he 'was on the cusp' for needing treatment however unclear what this could entail. Patient
is a non-smoker, rare alcohol, no illicits. No significant pertinent family history. In discussion with patient today, he does report some mild improvement with shortness of breath following neb treatments. Again, in evaluation, he denies any
palpitations associated with PVCs or ectopy. Additionally, patient has not experienced near-syncope syncope or focal weakness.
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
Subjective
Date of Service: January 08, 2025
Patient was seen and examined. Patient and significant other have been ambulating around floor without any difficulty. He feels great no cardiac complaints. He would like to go home.
Objective
Labs:
01/07/25 07:16
01/07/25 07:16
Labs
Hgb 12.2 g/dL (13.0-18.0) L 01/07/25 07:16
Hct 37.1 % (39.0-52.0) L 01/07/25 07:16
Plt Count 190 10^3/uL (130-400) 01/07/25 07:16
Sodium 139 mmol/L (135-145) 01/07/25 07:16
Potassium 4.2 mmol/L (3.5-5.1) 01/07/25 07:16
BUN 15 mg/dl (9-20) 01/07/25 07:16
Creatinine 0.8 mg/dL (0.7-1.3) 01/07/25 07:16
Glucose 96 mg/dl (70-99) 01/07/25 07:16
Vital Signs and I&O:
Vital Signs
Temp Pulse Resp BP Pulse Ox
98.2 F 55 20 113/56 96
01/08/25 07:32 01/08/25 07:32 01/08/25 07:32 01/08/25 07:32 01/08/25 07:32
Vital Signs
Temp Pulse Resp BP Pulse Ox
98.2 F 55 20 113/56 96
01/08/25 07:32 01/08/25 07:32 01/08/25 07:32 01/08/25 07:32 01/08/25 07:32
Intake & Output
01/06/25 01/07/25 01/08/25 01/09/25
06:59 06:59 06:59 06:59
Intake Total 960 / 960 240 / 240
Output Total 1050 / 1050
Balance 960 / 960 -810 / -810
Physical Exam
Physical Exam
GEN: No distress, awake, Ox3, sitting in chair
HEENT: supple, anicteric, mmm
LUNGS: CTA, no wheezes/rales
CV: Reg, occasional ectopy/tachycardia, S1/S2, no murmur
ABD: soft, BS+, NT/ND
EXT: No edema, clubbing or cyanosis
NEURO: Gross non-focal
SKIN: No rash, warm, dry, pink
[2025-01-08 11:03] VITALS: BP 131/82
--- NOTE | 2025-01-08 11:31 | CM ---
Addendum entered by Shilpi Mullen 01/08/25 13:28:
Patient is for discharge to home today, patient is still working not on medicare.
Original Note:
Chart reviewed and plan is to return to home when stable, no needs.
Plan; Home no needs when stable.
--- NOTE | 2025-01-08 13:18 | W.DS.TRANS ---
DC Summary - Evaluation Analyst
-
Discharge Instructions:
Discharge Diagnosis/Procedures Monomorphic VT
New onset atrial fibrillation
Nonobstructive CAD on cardiac cath
Cough
Radiculopathy
Diet Low Cholesterol
Activity As tolerated
Driving Restrictions No driving for 24 hours
Bathing Restrictions None
Blood Work BMP, mag, CBC 1 week after discharge
Others Tests Follow-up with your family doctor for
consideration of an MRI of your lumbosacral
spine
Follow-up with cardiology for an
electrophysiology study, office follow up has
been arranged
Continue to wear outpatient monitor through
.
Instructions:
Stand-Alone Forms: DC Instructions- Cath/EP Lab
Changes to Home Medications: Yes
Discharge Medications:
DC Medications w/original date entered in [employer]
ascorbic acid (vitamin C) 500 mg tablet (Vitamin C) 500 mg PO DAILY 12/29/24
cholecalciferol (vitamin D3) 25 mcg (1,000 unit) tablet (Vitamin D3) 25 mcg PO DAILY 12/29/24
magnesium oxide 400 mg PO DAILY 12/29/24
milk thistle 150 mg capsule 150 mg PO BID 12/29/24
omega 0-igg-gcr-fish oil 1,000 mg (120 mg-180 mg) capsule (Fish Oil) 1 cap PO DAILY 12/29/24
tamsulosin 0.4 mg capsule (Flomax) 0.8 mg PO HS 12/29/24
zinc sulfate 50 mg zinc (220 mg) tablet 50 mg PO DAILY 12/29/24
apixaban 5 mg tablet (Eliquis) 5 mg PO BID 1 month #60 tabs 01/05/25
budesonide 0.5 mg/2 mL suspension for nebulization 0.5 mg (2 mL) inhalation R BID 1 month #120 mL 01/05/25
guaifenesin 600 mg tablet, extended release 12 hr 600 mg PO Q12 1 week #14 tabs 01/05/25
hydrocodone-homatropine 5 mg-1.5 mg/5 mL (5 mL) oral solution (Hycodan) 10 ml PO Q4HPRN PRN cough 1 week #200 mL 01/05/25
ipratropium bromide 0.02 % solution for inhalation 0.5 mg (2.5 mL) inhalation R QID PRN wheezing 1 month #62.5 mL 01/05/25
nebulizer accessories #1 ea 01/05/25
nebulizers #1 ea 01/05/25
rosuvastatin 20 mg tablet 20 mg PO QPM 1 month #30 tabs 01/05/25
amiodarone 200 mg tablet (Pacerone) 200 mg PO BID #60 tabs 01/08/25
Home Medication Changes
All of above
Pending Results: No
[2025-01-08 14:49] VITALS: BP 155/57
== END 2025-01-08 15:01 | disposition home or self-care (01) | DRG 287 ==
LOC: 4 WEST ACU 15:55
PROVIDERS: Internal Medicine; Internal Medicine Interventional Cardiology; Nurse Practitioner; Nurse Practitioner Adult Health; Nurse Practitioner Family; Physician Assistant; Registered Nurse; ADMITTING PHYSICIAN Internal Medicine; ATTENDING PHYSICIAN Internal Medicine; CONSULT PHYSICIAN Internal Medicine Cardiovascular Disease; CONSULT PHYSICIAN Internal Medicine Critical Care Medicine; EMERGENCY PHYSICIAN Emergency Medicine
PROC: 4A023N7 Measurement of Cardiac Sampling and Pressure, Left Heart, Percutaneous Approach (ICD-10-PCS; 2025-01-04)
PROC: B2111ZZ Fluoroscopy of Multiple Coronary Arteries using Low Osmolar Contrast (ICD-10-PCS; 2025-01-04)
DX: I25.10 Atherosclerotic heart disease of native coronary artery without angina pectoris (principal); I47.20 Ventricular tachycardia, unspecified; Z11.52 Encounter for screening for COVID-19; I11.9 Hypertensive heart disease without heart failure; J45.909 Unspecified asthma, uncomplicated; I48.0 Paroxysmal atrial fibrillation; Z79.01 Long term (current) use of anticoagulants; Z79.899 Other long term (current) drug therapy
CPT/HCPCS: 71046; 71275; 75561; 78452; 80048; 80053; 80061; 82962; 83735; 83880; 84484; 85025; 85027; 85347; 85379; 87502; 87811; 93005; 93017; 93306; 93458; 93799; 94640; 94644; 96374; 99152; 99153; 99285; A9500; A9585; C1769; C1894; Q9950; Q9967

== ENCOUNTER 2025-03-08 06:04 | Day surgery (SDC) | payer OTHER, SELFPAY ==
[2025-02-18 10:45] VITALS: BMI 30.1
[2025-02-18 11:37] LABS: Hematocrit 44.5 % (39.0-52.0); Hemoglobin 14.4 g/dL (13.0-18.0); Mean Corp Hgb Conc. 32.4 g/dL (33.0-37.0); Mean Corpuscular Volume 95.1 fL (80.0-94.0); Nucleated Red Blood Cells % 0 % (-); Platelet Count 198 10^3/uL (130-400); Red Cell Dist. Width 14.1 % (11.5-14.5)
[2025-02-18 11:47] LABS: INR 1.27; PT 16.1 Sec (11.4-14.6)
[2025-02-18 12:06] LABS: ALT (SGPT) 22 U/L (0-50); AST (SGOT) 23 U/L (17-59); Albumin 4.7 g/dl (3.5-5.0); Alkaline Phosphatase 45 U/L (38-126); Blood Urea Nitrogen 22 mg/dl (9-20); Calcium 10.0 mg/dl (8.4-10.2); Carbon Dioxide 29 mmol/L (22-30); Chloride 103 mmol/L (98-107); Estimated Creatinine Clearance 77 ml/min; Glucose 121 mg/dl (70-99); Magnesium 2.1 mg/dl (1.6-2.3); Potassium 4.8 mmol/L (3.5-5.1); Sodium 138 mmol/L (135-145); Total Protein 7.9 g/dl (6.3-8.2); eGFR > 60.00
[2025-03-08] VITALS (17 sets, daily range): BP systolic 104–135; BP diastolic 57–77; BMI 30.1
[2025-03-08 09:12] LABS: ACT-LR - POC 335 Seconds (116-155)
[2025-03-08 09:30] LABS: ACT-LR - POC 298 Seconds (116-155)
[2025-03-08 09:52] LABS: ACT-LR - POC 292 Seconds (116-155)
[2025-03-08 10:21] LABS: ACT-LR - POC 305 Seconds (116-155)
[2025-03-08 10:29] LABS: ACT-LR - POC 152 Seconds (116-155)
--- NOTE | 2025-03-08 11:03 | ITS.CL.ABL ---
Vp Integration - Ablation
Ablation
Procedure Report:
Procedure Date: 03/08/2025
Patient History:
The patient is a pleasant 68-year-old male with past medical history significant for sleep apnea, asymptomatic bradycardia, nonobstructive CAD, hypertension, paroxysmal symptomatic atrial fibrillation, and symptomatic PVCs/NSVT. Site of earliest
activation likely RVOT based on morphology from EKG. Morphology by twelve-lead EKG indicates left bundle inferior axis with a QS pattern in V1 and transition V2/V3
See H&P for complete history.
Indication:
Symptomatic PVCs, NSVT
Intolerant to antiarrhythmic medical therapy
Procedure
X PVC/VT Ablation procedure (15560) -- includes 3D mapping
X +LA/CS pacing (82710)
X +Intracardiac ultrasound (21597)
[ ]+Transseptal (78232)
X +IV drug (57127)
[ ]+Other Arrhythmia (39670)
Method
NPO status confirmed. Grounding pad applied. Defibrillator pads applied. Continuous surface ECG, pulse oximetry, and blood pressure were monitored. Procedure was performed under MAC with anesthesia services.
Both groins were clipped, prepped with Chloraprep, and draped in sterile fashion. Time out was called. Local anesthesia administered with bupivacaine. The right femoral vein was accessed for catheter placement, using ultrasound guidance (images
saved to record), micro-puncture needle/wire, and modified seldinger technique. 3 sheaths were placed. Arterial access was obtained using ultrasound guidance and a 5 Fr sheath was placed and connected to arterial line BP monitoring.
The following catheters were used:
X TactiFlex SE (D/F-curve) ablation catheter
X Viewflex 9Fr ICE catheter
X Inquiry decapolar 6Fr diagnostic catheter
[ ] 6Fr quadrapolar diagnostic catheter
X HD Grid multielectrode mapping catheter
Heparin was given to achieve and maintain a target ACT of 300-400 seconds with use of the HD advisor grid.
ICE and 3D mapping was performed to identify relevant cardiac structures. A careful 3D map was created to assess for regions of low-voltage and abnormal electrogram signals (late potentials, fractionation). See synopsis for details
Catheter-based radiofrequency ablation was performed using a [employer] power generator. Target power was 20-25 [place]. See synopsis for details
At procedure conclusion, ICE was used to rule out pericardial effusion. Hemostasis was obtained with figure of 8 suture and manual pressure for venous sheaths with manual pressure for arterial sheath. Protamine was used for reversal. ACT < 170 at
time of arterial sheath pull.
Estimated Blood Loss
5 mL
Complications
None
Procedure Synopsis:
Patient in the room in sinus rhythm/sinus bradycardia. Prior to administration of anesthesia, isoproterenol was infused at escalating doses. Initially, patient had no PVCs/NSVT demonstrated on monitor and initiation of isoproterenol. During
isoproterenol infusion, patient began to experience PVCs. PVCs were of clinical morphology, left bundle inferiorly directed axis with QS in V1 transition V2/V3, positive lead I. Anesthesia was then provided and isoproterenol was reduced. Access
was obtained as described above. Intracardiac ultrasound was introduced. Cardiac function appeared grossly normal, this remained unchanged throughout procedure and a case completion. No pericardial effusion was demonstrated at the initiation of
procedure and this remained unchanged throughout procedure and a case completion. Heparin was provided for ACT 300�400 with use of HD grid. Sedation was reduced and isoproterenol infusion resumed. PVC mapping was then performed in the RVOT. Site
of earliest activation was identified in the posterior RVOT. HD grid was removed and short 9 [place] sheath was exchanged for a long 11.5 steerable sheath. HD grid was advanced back into the RVOT through the steerable sheath and additional mapping
was performed. HD grid was then removed and ablation catheter was advanced into the RVOT under ICE/fluoroscopic guidance. Continued mapping with the ablation catheter over top of the site of earliest activation demonstrated a -22 ms fractionated
signal with a QS pattern on the ablation distal EGM. Pacing from this area demonstrated a 12/12 morphology match. Sedation was resumed. RF was then delivered as documented above with careful monitoring of temperature, impedance, power. During
initial ablation, patient was noted to have frequent PVCs which subsided. Consolidation ablation performed around this region. Upon completion of last ablation lesion, sedation was reduced and isoproterenol was infused. Following a waiting phase
on high-dose isoproterenol, isoproterenol was discontinued. During isoproterenol fusion, no PVCs were noted. During isoproterenol washout for an additional waiting phase, no PVCs were noted. Electrophysiology study was then performed. No
induction of atrial arrhythmias were documented. Next, ventricular programmed stimulation was performed. This was performed from the right ventricle. 2 drivetrain's with S2 and S3 were performed. No inducible ventricular arrhythmias were noted
during ventricular programmed stimulation. During testing, no clinical PVCs were documented. Ablation catheter was then removed. Protamine was given for reversal. Intracardiac ultrasound demonstrated grossly normal heart function with no
pericardial effusion or change. Catheters were removed and hemostasis was achieved as noted above.
Fluoroscopy: 1.7 minutes; 22.53 mGy; DAP 2.22
Contrast used: 0 cc
Baseline Intervals:
Rhythm: SB
SD: 166 ms
QRS: 88 ms
QT: 436 ms
QTc: 470 ms
Post-Procedure Intervals:
SD: 209 ms
QRS: 88 ms
QT: 411 ms
QTc: 404 ms
A-A: 1035 ms
R-R: 1035 ms
AVWB: 420 ms
AVNERP: 600/270 ms
AERP: 600/250 ms
Recommendations
- Bedrest with straight-leg precautions as ordered
- Admit with anticipate discharge home tomorrow after overnight observation
- Resume home medications as indicated
- Ok to resume anticoagulation in AM if patient and groin sites stable
- Plan for follow-up in office as scheduled
Charles Montalvo DO, [facility], [facility]
Clinical Cardiac Garnett Mechanic
--- NOTE | 2025-03-08 14:13 | CM ---
Chart reviewed. Patient is independent of ADLS, lives with his spouse here in a [address], [address], [address] and in [facility] an apartment, [address]. Plan is for the patient to return home.
[2025-03-08] MEDS: CRESTOR 20 MG PO (17:20)
--- NOTE | 2025-03-08 17:50 | PTCARENOTE ---
Pt received from EP lab post PVC ablation done via right femoral artery and vein. Dressing dry and intact, figure of eight suture removed per order without problem, no sign of bleeding or hematoma. Pt OOB with minimal assistance, walking with a
steady gait. Pt voiding without difficulty. Telemetry shows sinus palmiar with first degree AV block, no ectopy noted.
[2025-03-08] MEDS: ALTACE 10 MG PO (19:50)
[2025-03-08] MEDS: FLOMAX 0.8 MG PO (22:46)
--- NOTE | 2025-03-09 00:51 | PTCARENOTE ---
Received pt @ 2300 @ start of shift. Pt resting in bed, eyes closed, rhythmic breathing. VSS-- BiPAP on, SB with first degree AV block on monitor. Arousal to verbal stimulation. Denies discomfort @ this time, just states 'very tired.' Right groin
site clean, dry, and intact-- soft to touch. Discussed plan of care. Pt verbalizes understanding. Plan of care ongoing. Call onlasco within reach.
[2025-03-09 03:35] VITALS: BP 105/59
[2025-03-09 04:10] LABS: Hematocrit 37.0 % (39.0-52.0); Hemoglobin 12.3 g/dL (13.0-18.0); Mean Corp Hgb Conc. 33.2 g/dL (33.0-37.0); Mean Corpuscular Volume 91.6 fL (80.0-94.0); Platelet Count 196 10^3/uL (130-400); Red Cell Dist. Width 13.1 % (11.5-14.5)
[2025-03-09 04:36] LABS: Blood Urea Nitrogen 13 mg/dl (9-20); Calcium 8.8 mg/dl (8.4-10.2); Carbon Dioxide 25 mmol/L (22-30); Chloride 103 mmol/L (98-107); Estimated Creatinine Clearance 96 ml/min; Glucose 103 mg/dl (70-99); Magnesium 2.0 mg/dl (1.6-2.3); Potassium 4.2 mmol/L (3.5-5.1); Sodium 136 mmol/L (135-145); eGFR > 60.00
--- NOTE | 2025-03-09 07:11 | W.PN.CARDCBS ---
Addendum entered and electronically signed by Victoriano Christiansen MD 03/09/25 09:01:
Patient seen, interviewed and examined by me.
Well-appearing, no acute distress
Regular rate and rhythm with normal S1 and S2, no S3 no S4. There is a grade 1/6 apical holosystolic murmur and no rubs. PMI is normally placed.
Lungs are clear to auscultation bilaterally without wheezes rales or rhonchi.
Abdomen soft nontender nondistended with normoactive bowel sounds
Extremities show trace pretibial edema bilaterally no clubbing or cyanosis.
Neurologic exam is grossly nonfocal.
Reviewed telemetry, no arrhythmias, no PVCs
Groins without hematoma, +2 pulses
He has no complaints. He is feeling well.
He is stable for discharge to home today.
He does have paroxysmal atrial fibrillation and we are resuming oral anticoagulation, Eliquis.
We have arranged office follow-up with Dr. Hernandez
All of the patient's questions have been answered. Stable for discharge home
Original Note:
Today's Communication / Plan
-
Appears well post PVC ablation
No arrhythmias noted on tele, ok to stop amiodarone
Eliquis to restart this AM
OK for discharge
Impression / Plan
-
Sewer Line Repairer: Dr. Montalvo
Impression:
PVCs, nonsustained VT
s/p PVC ablation 03/08/2025
Paroxysmal atrial fibrillation
Chronic Eliquis OAC
Nonobstructive CAD
Bradycardia
Obstructive sleep apnea
Hypertension
Cardiac catheterization 01/04/2025: Left main: Patent. LAD: Mild diffuse atherosclerotic plaque. Left circumflex. Mild diffuse atherosclerotic plaque. OM 2 proximal 20% stenosis. RCA ostial 60% stenosis with IFR negative at 0.95. Mid to distal
RCA with 50 to 60% calcified stenosis. -3 flow in distal vessel.
Echo 12/30/2024: EF 60 to 65%. Normal regional wall motion. Mild RV dilation with mild RV systolic dysfunction. Mild aortic valve dilation SVO 3.8 cm. No significant valvular disease.
Plan:
-Noted to have symptomatic PVCs and is now s/p PVC ablation 03/08/2025 w/ Dr. Montalvo
-Doing well overnight. No PVCs/NSVT noted on tele.
-OK to stop amiodarone.
-EKG this AM stable, sinus bradycardia w/ 1st degree AV block.
-Groin site stable. No bleeding noted. OK to resume Eliquis 5mg BID this AM.
-BP stable. Continue Dyazide, ramipril
-OK for discharge today, 03/09.
-Follow up arranged.
Progress Note - Sewer Line Repairer
Subjective
Date of Service: March 09, 2025
No complaints. Feels well.
Objective
Labs:
03/09/25 03:43
03/09/25 03:43
Labs
Hgb 12.3 g/dL (13.0-18.0) L 03/09/25 03:43
Hct 37.0 % (39.0-52.0) L 03/09/25 03:43
Plt Count 196 10^3/uL (130-400) 03/09/25 03:43
PT 16.1 Sec (11.4-14.6) H 02/18/25 11:03
INR 1.27 02/18/25 11:03
Sodium 136 mmol/L (135-145) 03/09/25 03:43
Potassium 4.2 mmol/L (3.5-5.1) 03/09/25 03:43
BUN 13 mg/dl (9-20) 03/09/25 03:43
Creatinine 0.8 mg/dL (0.7-1.3) 03/09/25 03:43
Glucose 103 mg/dl (70-99) H 03/09/25 03:43
Vital Signs and I&O:
Vital Signs
Temp Pulse Resp BP Pulse Ox
98.0 F 48 16 105/59 97
03/09/25 04:02 03/09/25 04:00 03/09/25 04:02 03/09/25 03:35 03/09/25 04:02
Vital Signs
Temp Pulse Resp BP Pulse Ox
98.0 F 48 16 105/59 97
03/09/25 04:02 03/09/25 04:00 03/09/25 04:02 03/09/25 03:35 03/09/25 04:02
Intake & Output
03/07/25 03/08/25 03/09/25 03/10/25
06:59 06:59 06:59 06:59
Output Total 400 / 400
Balance -400 / -400
Physical Exam
Physical Exam
GEN: No distress, awake, alert, oriented x3
HEENT: supple, anicteric, mmm
LUNGS: CTA b/l, no wheezes/rales
CV: Reg, S1/S2, no murmur
EXT: No edema, clubbing or cyanosis
NEURO: Gross non-focal
SKIN: No rash, warm, dry, pink
--- NOTE | 2025-03-09 07:49 | W.DS.TRANS ---
DC Summary - Rhinologist
-
Discharge Instructions:
Discharge Diagnosis/Procedures PVCs, post ablation
Diet Low Cholesterol
Driving Restrictions No driving for 24 hours
Instructions:
Stand-Alone Forms: DC Instructions- Cath/EP Lab
Changes to Home Medications: Yes
Discharge Medications:
DC Medications w/original date entered in [employer]
ascorbic acid (vitamin C) 500 mg tablet (Vitamin C) 500 mg PO DAILY 12/29/24
cholecalciferol (vitamin D3) 25 mcg (1,000 unit) tablet (Vitamin D3) 25 mcg PO QPM 12/29/24
magnesium oxide 400 mg PO QPM 12/29/24
milk thistle 150 mg capsule 150 mg PO BID 12/29/24
omega 5-mff-lcm-fish oil 1,000 mg (120 mg-180 mg) capsule (Fish Oil) 1 cap PO DAILY 12/29/24
tamsulosin 0.4 mg capsule (Flomax) 0.8 mg PO QPM 12/29/24
zinc sulfate 50 mg zinc (220 mg) tablet 50 mg PO QPM 12/29/24
nebulizer accessories #1 ea 01/05/25
nebulizers #1 ea 01/05/25
rosuvastatin 20 mg tablet 20 mg PO QPM 1 month #30 tabs 01/05/25
Chondroitin Sulfate 1 dose PO DAILY 02/15/25
Vitamin B-1 1 dose PO DAILY 02/15/25
biotin 1 dose PO DAILY 02/15/25
glycine 1 dose PO QPM 02/15/25
ramipril 10 mg capsule 10 mg PO BID 02/15/25
triamterene 37.5 mg-hydrochlorothiazide 25 mg tablet 1 tab PO DAILY 02/15/25
turmeric 1 dose PO DAILY 02/15/25
apixaban 5 mg tablet (Eliquis) 5 mg PO BID 1 month #180 tabs 03/08/25
Home Medication Changes
amiodarone stopped
Pending Results: No
[2025-03-09] MEDS: DYAZIDE 1 CAPSULE PO (08:44)
[2025-03-09] MEDS: ALTACE 10 MG PO (08:44)
[2025-03-09 08:45] VITALS: BP 108/46
[2025-03-09] MEDS: ELIQUIS 5 MG PO (08:45)
--- NOTE | 2025-03-09 08:55 | PTCARENOTE ---
Rec'd Pt A,A+Ox3, VSS. R femoral dsg D+I. Pt denies pain. Ambulating in room, anxious for discharge today,
== END 2025-03-09 10:23 | disposition home or self-care (01) ==
LOC: CATH 06:04
PROVIDERS: Nurse Practitioner Adult Health; ATTENDING PHYSICIAN Internal Medicine Cardiovascular Disease
DX: I47.20 Ventricular tachycardia, unspecified (principal); I49.3 Ventricular premature depolarization; I48.0 Paroxysmal atrial fibrillation; I44.0 Atrioventricular block, first degree; R00.1 Bradycardia, unspecified; I25.10 Atherosclerotic heart disease of native coronary artery without angina pectoris; J45.909 Unspecified asthma, uncomplicated; G47.33 Obstructive sleep apnea (adult) (pediatric); Z87.11 Personal history of peptic ulcer disease; K46.9 Unspecified abdominal hernia without obstruction or gangrene; E66.9 Obesity, unspecified; Z68.30 Body mass index [BMI] 30.0-30.9, adult; H91.93 Unspecified hearing loss, bilateral; N40.0 Benign prostatic hyperplasia without lower urinary tract symptoms; K76.0 Fatty (change of) liver, not elsewhere classified; Z79.899 Other long term (current) drug therapy; Z79.01 Long term (current) use of anticoagulants
CPT/HCPCS: C1732; C1894; C1766; C1892; C1759; 36415; 80048; 80053; 83735; 85025; 85027; 85347; 85610; 86850; 86900; 86901; 93005; 93621; 93623; 93654; 93662